=== PATIENT | male | born 1940 | race Caucasian/White ===

== ENCOUNTER → 2019-08-13 14:05 | Outpatient (BNVA) | payer MEDICARE, SELFPAY | PROVIDERS: Referring Provider Family Medicine; Visit Provider Urology | DX: N40.1 Benign prostatic hyperplasia with lower urinary tract symptoms (principal); R33.9 Retention of urine, unspecified; R97.20 Elevated prostate specific antigen [PSA]; N42.31 Prostatic intraepithelial neoplasia; I10 Essential (primary) hypertension | CPT/HCPCS: 51798; 99203 ==

== ENCOUNTER 2019-08-13 15:21 | Outpatient (CLI) | payer MEDICARE, SELFPAY | END 2019-08-13 15:41 | PROVIDERS: PCP Family Medicine; Visit Provider Urology | DX: R97.20 Elevated prostate specific antigen [PSA] (principal); N40.1 Benign prostatic hyperplasia with lower urinary tract symptoms; R33.9 Retention of urine, unspecified; N42.31 Prostatic intraepithelial neoplasia; I10 Essential (primary) hypertension | CPT/HCPCS: 51798; 99203; 84154 ==

== ENCOUNTER 2020-02-23 14:00 | Outpatient (CLI) | payer MEDICARE, SELFPAY | END 2020-02-23 14:20 | PROVIDERS: PCP Family Medicine; Visit Provider Nurse Practitioner Gerontology | DX: N40.1 Benign prostatic hyperplasia with lower urinary tract symptoms (principal); I10 Essential (primary) hypertension; C15.9 Malignant neoplasm of esophagus, unspecified | CPT/HCPCS: 81003; 99213 ==

== ENCOUNTER 2020-05-24 04:02 | Outpatient (CLI) | payer MEDICARE, SELFPAY ==
[2020-05-25 11:15] LABS: Free PSA/PSA Ratio 0.23 ratio
== END 2020-05-24 04:22 ==
PROVIDERS: PCP Family Medicine; Visit Provider Urology
DX: N42.31 Prostatic intraepithelial neoplasia (principal); R97.20 Elevated prostate specific antigen [PSA]
CPT/HCPCS: 36415; 84154

== ENCOUNTER → 2020-08-15 13:49 | Outpatient (BNVA) | payer MEDICARE, SELFPAY | PROVIDERS: PCP Family Medicine; Visit Provider Nurse Practitioner Gerontology | DX: N40.1 Benign prostatic hyperplasia with lower urinary tract symptoms (principal); R97.20 Elevated prostate specific antigen [PSA]; I10 Essential (primary) hypertension | CPT/HCPCS: 99213 ==

== ENCOUNTER → 2021-04-20 12:46 | Outpatient (BNVA) | payer MEDICARE, SELFPAY | PROVIDERS: PCP Family Medicine; Referring Provider Family Medicine; Visit Provider Urology | DX: N40.1 Benign prostatic hyperplasia with lower urinary tract symptoms (principal); N42.31 Prostatic intraepithelial neoplasia; R97.20 Elevated prostate specific antigen [PSA] | CPT/HCPCS: 81003; 99214; 99215 ==

== ENCOUNTER 2021-04-20 14:40 | Outpatient (REF) | payer MEDICARE, SELFPAY ==
[2021-04-20 21:57] LABS: PSA, Diagnostic 31.1 ng/mL (0.0-6.5)
== END 2021-04-20 14:41 | disposition home or self-care (01) ==
LOC: NCHCN 14:40
PROVIDERS: PCP Family Medicine; Visit Provider Urology
DX: R97.20 Elevated prostate specific antigen [PSA] (principal)
CPT/HCPCS: 84153

== ENCOUNTER → 2021-05-22 07:58 | Outpatient (BNVA) | payer MEDICARE, SELFPAY | PROVIDERS: PCP Family Medicine; Referring Provider Family Medicine; Visit Provider Nurse Practitioner Gerontology | DX: R69 Illness, unspecified (principal) ==

== ENCOUNTER 2021-05-22 08:56 | Outpatient (REF) | payer MEDICARE, SELFPAY ==
[2021-05-22 22:08] LABS: PSA, Diagnostic 12.6 ng/mL (0.0-6.5)
== END 2021-05-22 08:57 | disposition home or self-care (01) ==
LOC: LBN 08:56
PROVIDERS: PCP Family Medicine; Visit Provider Urology
DX: R97.20 Elevated prostate specific antigen [PSA] (principal); N42.31 Prostatic intraepithelial neoplasia
CPT/HCPCS: 84153

== ENCOUNTER 2021-08-23 02:36 | Outpatient (CLI) | payer MEDICARE, SELFPAY ==
[2021-08-23 18:45] LABS: PSA, Diagnostic 10.3 ng/mL (0.0-6.5)
== END 2021-08-23 02:37 | disposition home or self-care (01) ==
LOC: LBO 02:36
PROVIDERS: Nurse Practitioner Gerontology; PCP Family Medicine; Visit Provider Urology
DX: R97.20 Elevated prostate specific antigen [PSA] (principal)
CPT/HCPCS: 36415; 84153

== ENCOUNTER → 2021-08-29 13:44 | Outpatient (BNVA) | payer MEDICARE, SELFPAY | PROVIDERS: PCP Family Medicine; Referring Provider Family Medicine; Visit Provider Nurse Practitioner Gerontology | DX: N40.1 Benign prostatic hyperplasia with lower urinary tract symptoms (principal); N42.31 Prostatic intraepithelial neoplasia; R97.20 Elevated prostate specific antigen [PSA] | CPT/HCPCS: 99213 ==

== ENCOUNTER 2022-02-21 02:35 | Outpatient (CLI) | payer MEDICARE, SELFPAY ==
[2022-02-21 23:05] LABS: PSA, Diagnostic 11.4 ng/mL (<=6.5)
== END 2022-02-21 02:36 | disposition home or self-care (01) ==
LOC: LBO 02:35
PROVIDERS: PCP Family Medicine; Visit Provider Nurse Practitioner Gerontology
DX: N40.1 Benign prostatic hyperplasia with lower urinary tract symptoms (principal); N42.31 Prostatic intraepithelial neoplasia; R97.20 Elevated prostate specific antigen [PSA]
CPT/HCPCS: 36415; 84153

== ENCOUNTER → 2022-02-27 13:55 | Outpatient (BNVA) | payer MEDICARE, SELFPAY | PROVIDERS: PCP Family Medicine; Visit Provider Nurse Practitioner Gerontology | DX: N40.1 Benign prostatic hyperplasia with lower urinary tract symptoms (principal); R33.8 Other retention of urine; N42.31 Prostatic intraepithelial neoplasia; R97.20 Elevated prostate specific antigen [PSA] | CPT/HCPCS: 51798; 99214 ==

== ENCOUNTER 2022-08-19 03:10 | Outpatient (CLI) | payer MEDICARE, SELFPAY ==
[2022-08-19 18:03] LABS: PSA, Diagnostic 11.7 ng/mL (<=6.5)
== END 2022-08-19 03:11 | disposition home or self-care (01) ==
LOC: LBO 03:10
PROVIDERS: PCP Family Medicine; Visit Provider Nurse Practitioner Gerontology
DX: N42.31 Prostatic intraepithelial neoplasia (principal); N40.1 Benign prostatic hyperplasia with lower urinary tract symptoms; R97.20 Elevated prostate specific antigen [PSA]
CPT/HCPCS: 36415; 84153

== ENCOUNTER → 2022-09-02 13:50 | Outpatient (BNVA) | payer MEDICARE, SELFPAY | PROVIDERS: PCP Family Medicine; Referring Provider Family Medicine; Visit Provider Nurse Practitioner Gerontology | DX: R39.89 Other symptoms and signs involving the genitourinary system (principal); N40.1 Benign prostatic hyperplasia with lower urinary tract symptoms; R97.20 Elevated prostate specific antigen [PSA]; N42.31 Prostatic intraepithelial neoplasia | CPT/HCPCS: 51798; 99214 ==

== ENCOUNTER → 2022-12-18 14:34 | Outpatient (BNVA) | payer MEDICARE, SELFPAY | PROVIDERS: PCP Family Medicine; Referring Provider Family Medicine; Visit Provider Nurse Practitioner Gerontology | DX: N20.0 Calculus of kidney (principal) | CPT/HCPCS: 99442 ==

== ENCOUNTER 2022-12-19 10:10 | Day surgery (SDC) | payer MEDICARE, SELFPAY ==
[2022-12-19] VITALS (7 sets, daily range): BP systolic 142–188; BP diastolic 69–96; PULSE 48–65; RESP 12–98; TEMP 36–36.7; O2SAT 94–100; BMI 31.6
[2022-12-19] MEDS: Lactated Ringers 1,000 ML 80 ML IV (11:12)
--- NOTE | 2022-12-19 12:09 | W.ANESPRE ---
General Info Date of Service Date Performed: 12/19/22 Height: 5 ft 11.5 in Weight: 104.3 kg Body Mass Index (BMI): 31.6 Surgical Procedure: Operation Date: 12/19/22 12:55 Proposed Procedure Side Surgeon p Cystoscopy/Retrograde/RT vs LT Stone Manipulation Bilateral Lamonte Heredia MD Meds Allergies and Home Medications Allergies Allergy/AdvReac Type Severity Reaction Status Date / Time amlodipine Allergy polyuria Verified 12/19/22 10:48 bisoprolol Allergy bradycardia Verified 12/19/22 10:48 diltiazem [From Diltia XT] Allergy Edema Verified 12/19/22 10:48 labetalol Allergy trouble Verified 12/19/22 10:48 breathing lisinopril Allergy leg pain Verified 12/19/22 10:48 losartan Allergy leg pain Verified 12/19/22 10:48 metoprolol Allergy bradycardia Verified 12/19/22 10:48 Home Medication Medication Instructions Recorded acetaminophen 500 mg/5 mL oral 250 mg PO DAILY PRN 12/18/22 liquid doxazosin 2 mg tablet 1 mg PO HS 12/18/22 levothyroxine 88 mcg tablet 88 mcg PO DAILY 12/18/22 ondansetron HCl 4 mg tablet 4 mg PO DIRECTED PRN 12/18/22 Current Visit Medications: Current Medications Generic Name Dose Route Start Last Admin Trade Name Freq PRN Reason Stop Dose Admin Ringer's Solution 1,000 mls @ 80 mls/hr 12/19/22 06:00 12/19/22 11:12 IV 12/19/22 23:59 80 mls/hr INFUSION MARICARMEN Administration Cefazolin Sodium/Dextrose 2 gm in 50 mls @ 100 mls/hr 12/19/22 06:00 Ancef Duplex IVPB 12/19/22 23:59 PREOP MARICARMEN IV Miscellaneous Supplies 1 each 12/19/22 06:00 Iv Access IV 12/19/22 23:59 DIRECTED MARICARMEN Sodium Chloride 0 ml 12/19/22 06:00 Normal Saline Flush 10 Ml Syr IV 12/19/22 23:59 PRN PRN Sodium Chloride 0 ml 12/19/22 06:00 Normal Saline 10 Ml Vial IJ 12/19/22 23:59 DIRECTED PRN Sterile Water 0 ml 12/19/22 06:00 Water,Injection,Sterile 10 Ml Vial IJ 12/19/22 23:59 DIRECTED PRN PFSH Active Problems Active Problems: Problem Status Onset Code Elevated PSA R97.20 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 BPH loc w urin obs/LUTS N40.1 Nail dystrophy L60.3 Bilateral edema of lower extremity R60.0 Medical History Medical History Arthritis Asthma BPH (benign prostatic hyperplasia) Enlarged prostate Esophageal cancer Radiation and Chemo and 2/3 of esphagous removed in [place] (03/22/20)-In remission Glaucoma Hemorrhoids Hypertension Hypothyroidism Incomplete emptying of bladder Lung cancer Radiation therapy 08/2022-current status: no treatment as of this pre op 12/18/22 Nocturia Normal colonoscopy Obesity Thyroid disease Surgical History Surgical History (Updated 12/19/22 @ 10:47 by Nancy Coelho) H/O inguinal hernia repair H/O umbilical hernia repair History of total bilateral knee replacement History of total right hip replacement Tobacco Smoking/Tobacco Use Status: Former Tobacco Use Alcohol Alcohol Intake: never Substance Use Substance use: Never Substance use type: does not use Vital Signs and Lab Results Vital Signs Most Recent Vital Signs in EMR: Most Recent Vital Signs Temp Pulse Resp BP Pulse Ox 36 C L 54 L 16 188/96 H 98 12/19/22 10:30 12/19/22 10:30 12/19/22 10:30 12/19/22 10:30 12/19/22 10:30 Lab Results Blood Type / Crossmatch: No Data to Display Complete Blood Count: No Data to Display Complete Metabolic Panel: No Data to Display Liver Function Panel: No Data to Display Coagulation Panel: No Data to Display Cardiac Panel: No Data to Display Arterial Blood Gas: No Data to Display Venous Blood Gas: No Data to Display Pancreas Panel: No Data to Display Thyroid Panel: No Data to Display Infectious Disease: No Data to Display Blood Cultures: No Data to Display Toxicology Panel: No Data to Display Imaging and Studies Imaging and Studies Study information below may be from another EMR and interpreted by another provider. Please see original notes in EMR for more complete details. Stress Test Summary: 06/22/2020: [facility]: Normal, EF 56%. Anesthesia Assessment and Plan Anesthesia History Personal History: No History of Anesthesia Complications Family History: No Family History of Anesthesia Complications Implantable Cardiac Device Does patient have a Pacemaker or an ICD?: No
--- NOTE | 2022-12-19 13:16 | W.PM.HP.N ---
Date of service: 12/19/22 Time of Service: 14:09 Assessment and Plan Assessment and plan (1) Bilateral ureteral calculi: Status: Acute Assessment and plan: In reviewing his imaging studies, I am not certain that one or both of his stones are not already in the bladder. We will plan to go ahead with cystoscopy, bilateral retrograde pyelogram, possible ureteroscopy and holmium laser lithotripsy based on the location of the stones History of Present Illness History of Present Illness Chief Complaint: Bilateral ureteral stones Narrative: This is an 82-year-old gentleman who is followed in our office for an elevated PSA and lower urinary tract symptoms. He has chronic back pain that he noticed that the left-sided portion of his back pain worsened recently. He was seen in the emergency department at [facility] and was found to have bilateral ureteral stones. Since he has remained symptomatic, he is interested in moving forward with surgical treatment of his stones. He has no known history of gout or hyperparathyroid disease. He is not having any gross hematuria or dysuria. He has no fevers or chills. Review of Systems Narrative: No fevers or chills No vision change or dysphasia Hypothyroidism. No diabetes No shortness of breath, cough or hemoptysis No chest pain or palpitations GERD, esophageal cancer. No nausea, vomiting, hepatitis, ulcers, jaundice No seizures, strokes or peripheral neuropathy No bleeding disorders or anemia Chronic back pain. No gout PFSH All Active Problems (Updated 12/19/22 @ 13:17 by Lamonte Heredia MD) Bilateral ureteral calculi (Acute) Elevated PSA (Acute) High grade prostatic intraepithelial neoplasia (Acute) BPH loc w urin obs/LUTS (Acute) Nail dystrophy (Acute) Bilateral edema of lower extremity (Acute) Medical History (Updated 12/19/22 @ 13:17 by Lamonte Heredia MD) Arthritis Asthma BPH (benign prostatic hyperplasia) Enlarged prostate Esophageal cancer Radiation and Chemo and 2/3 of esphagous removed in [place] (03/22/20)-In remission Glaucoma Hemorrhoids Hypertension Hypothyroidism Incomplete emptying of bladder Lung cancer Radiation therapy 08/2022-current status: no treatment as of this pre op 12/18/22 Nocturia Normal colonoscopy Obesity Thyroid disease Surgical History (Updated 12/19/22 @ 10:47 by Nancy Coelho) H/O inguinal hernia repair H/O umbilical hernia repair History of total bilateral knee replacement History of total right hip replacement Social History Smoking/Tobacco Use Status: Former Tobacco Use Quit Date: 11/03/84 Smoking risk assessment performed?: Yes Alcohol Intake: never Drug use: Never Substance use type: does not use Current gender identity: male Do you feel safe at home: Yes Do you feel safe in your relationship?: Yes Meds Allergies and Home Medications Allergies Allergy/AdvReac Type Severity Reaction Status Date / Time amlodipine Allergy polyuria Verified 12/19/22 10:48 bisoprolol Allergy bradycardia Verified 12/19/22 10:48 diltiazem [From Diltia XT] Allergy Edema Verified 12/19/22 10:48 labetalol Allergy trouble Verified 12/19/22 10:48 breathing lisinopril Allergy leg pain Verified 12/19/22 10:48 losartan Allergy leg pain Verified 12/19/22 10:48 metoprolol Allergy bradycardia Verified 12/19/22 10:48 Home Medications Medication Instructions Recorded Confirmed Type acetaminophen 500 mg/5 mL oral 250 mg PO DAILY PRN 12/18/22 12/19/22 History liquid doxazosin 2 mg tablet 1 mg PO HS 12/18/22 12/19/22 History levothyroxine 88 mcg tablet 88 mcg PO DAILY 12/18/22 12/19/22 History ondansetron HCl 4 mg tablet 4 mg PO DIRECTED PRN 12/18/22 12/18/22 History Exam Const General: cooperative and comfortable Neck Neck: supple Resp Effort & Inspection: normal respiratory effort Auscultation: clear to auscultation bilaterally Cardio Rate: regular rate Rhythm: regular rhythm GI Palpation: no masses Neuro General: patient alert, patient awake and patient oriented x3 Results Last Vital Signs Temp 36 C L 12/19/22 10:30 Pulse 54 L 12/19/22 10:30 Resp 16 12/19/22 10:30 BP 188/96 H 12/19/22 10:30 Pulse Ox 98 12/19/22 10:30 Time Spent Time spent with Patient: <40 minutes Time was spent: other
--- NOTE | 2022-12-19 13:52 | W.ANESPRE ---
General Info Date of Service Date Performed: 12/19/22 Height: 5 ft 11.5 in Weight: 104.3 kg Body Mass Index (BMI): 31.6 Surgical Procedure: Operation Date: 12/19/22 12:55 Proposed Procedure Side Surgeon p Cystoscopy/Retrograde/RT vs LT Stone Manipulation Bilateral Lamonte Heredia MD Meds Allergies and Home Medications Allergies Allergy/AdvReac Type Severity Reaction Status Date / Time amlodipine Allergy polyuria Verified 12/19/22 10:48 bisoprolol Allergy bradycardia Verified 12/19/22 10:48 diltiazem [From Diltia XT] Allergy Edema Verified 12/19/22 10:48 labetalol Allergy trouble Verified 12/19/22 10:48 breathing lisinopril Allergy leg pain Verified 12/19/22 10:48 losartan Allergy leg pain Verified 12/19/22 10:48 metoprolol Allergy bradycardia Verified 12/19/22 10:48 Home Medication Medication Instructions Recorded acetaminophen 500 mg/5 mL oral 250 mg PO DAILY PRN 12/18/22 liquid doxazosin 2 mg tablet 1 mg PO HS 12/18/22 levothyroxine 88 mcg tablet 88 mcg PO DAILY 12/18/22 ondansetron HCl 4 mg tablet 4 mg PO DIRECTED PRN 12/18/22 Current Visit Medications: Current Medications Generic Name Dose Route Start Last Admin Trade Name Freq PRN Reason Stop Dose Admin Ringer's Solution 1,000 mls @ 80 mls/hr 12/19/22 06:00 12/19/22 11:12 IV 12/19/22 23:59 80 mls/hr INFUSION MARICARMEN Administration Cefazolin Sodium/Dextrose 2 gm in 50 mls @ 100 mls/hr 12/19/22 06:00 Ancef Duplex IVPB 12/19/22 23:59 PREOP MARICARMEN IV Miscellaneous Supplies 1 each 12/19/22 06:00 Iv Access IV 12/19/22 23:59 DIRECTED MARICARMEN Sodium Chloride 0 ml 12/19/22 06:00 Normal Saline Flush 10 Ml Syr IV 12/19/22 23:59 PRN PRN Sodium Chloride 0 ml 12/19/22 06:00 Normal Saline 10 Ml Vial IJ 12/19/22 23:59 DIRECTED PRN Sterile Water 0 ml 12/19/22 06:00 Water,Injection,Sterile 10 Ml Vial IJ 12/19/22 23:59 DIRECTED PRN PFSH Active Problems Active Problems: Problem Status Onset Code Bilateral ureteral calculi N20.1 Elevated PSA R97.20 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 BPH loc w urin obs/LUTS N40.1 Nail dystrophy L60.3 Bilateral edema of lower extremity R60.0 Medical History Medical History (Updated 12/19/22 @ 13:17 by Lamonte Heredia MD) Arthritis Asthma BPH (benign prostatic hyperplasia) Enlarged prostate Esophageal cancer Radiation and Chemo and 2/3 of esphagous removed in [place] (03/22/20)-In remission Glaucoma Hemorrhoids Hypertension Hypothyroidism Incomplete emptying of bladder Lung cancer Radiation therapy 08/2022-current status: no treatment as of this pre op 12/18/22 Nocturia Normal colonoscopy Obesity Thyroid disease Surgical History Surgical History (Updated 12/19/22 @ 10:47 by Nancy Coelho) H/O inguinal hernia repair H/O umbilical hernia repair History of total bilateral knee replacement History of total right hip replacement Tobacco Smoking/Tobacco Use Status: Former Tobacco Use Alcohol Alcohol Intake: never Substance Use Substance use: Never Substance use type: does not use Vital Signs and Lab Results Vital Signs Most Recent Vital Signs in EMR: Most Recent Vital Signs Temp Pulse Resp BP Pulse Ox 36 C L 54 L 16 188/96 H 98 12/19/22 10:30 12/19/22 10:30 12/19/22 10:30 12/19/22 10:30 12/19/22 10:30 Lab Results Blood Type / Crossmatch: No Data to Display Complete Blood Count: No Data to Display Complete Metabolic Panel: No Data to Display Liver Function Panel: No Data to Display Coagulation Panel: No Data to Display Cardiac Panel: No Data to Display Arterial Blood Gas: No Data to Display Venous Blood Gas: No Data to Display Pancreas Panel: No Data to Display Thyroid Panel: No Data to Display Infectious Disease: No Data to Display Blood Cultures: No Data to Display Toxicology Panel: No Data to Display Imaging and Studies Imaging and Studies Study information below may be from another EMR and interpreted by another provider. Please see original notes in EMR for more complete details. Stress Test Summary: 06/22/2020: [facility]: Normal, EF 56%. Anesthesia Assessment and Plan Anesthesia History Personal History: Other (urinary retention after spinal requiring urologist) Family History: No Family History of Anesthesia Complications Exercise Tolerance Exercise Tolerance: Metabolic Equivalents>4 Cardiac & Pulmonary Exam Cardiac Exam: Normal S1/S2 Heart Sounds Pulmonary Exam: Clear Bilateral Breath Sounds Implantable Cardiac Device Does patient have a Pacemaker or an ICD?: No Airway Exam Known Difficult Airway: No Mallampati Class: 3 Mouth Opening: Normal (> 3cm) Thyromental Distance: Greater than 3 cm Neck Range of Motion: Full ROM Neck Circumference: Normal Teeth Condition: Removable Dentures/Plates Upper and Removable Dentures/Plates Lower ASA Classification ASA Score: ASA 3 Emergency Case?: No NPO Status NPO Status: NPO Clears >2 hours, Solids >8 hours Anesthesia Plan Resuscitation Status: Full Code Anesthesia Technique: General Anesthesia Airway Planned: Endotracheal Tube (reflux when flat result of surgery. will need to protect airway) Monitors Used: Standard Monitors Preoperative Comments:: Due to surgical esophageal cancer will need to rapid intubate. Pt understands
--- NOTE | 2022-12-19 14:15 | DI.RAD_ITS ---
Exam(s) XR RETROGRADE IN OR EXAM: XR RETROGRADE IN OR CLINICAL HISTORY: (1) Bilateral ureteral calculi:. TECHNIQUE: 2D digital imaging was performed. COMPARISON: No exams were available for comparison FINDINGS: Fluoroscopy provided during urologic procedure. Please refer for to procedure report for details. Radiation exposure index/cumulative dose: kasia Grant= 2.09mGy IMPRESSION: DATA REPOSITORY: RADIATION DOSE DELIVERED:
--- NOTE | 2022-12-19 15:36 | W.PM.DSUDISC ---
Date of service: 12/19/22 Time of Service: 15:39 Discharge Plan Disposition Condition: Stable Discharge Details Reason For Visit: cystoscopy Attending Provider: Lamonte Heredia Primary Care Provider: Chris Farah Home Meds and New Rx's Prescriptions: No Action doxazosin 2 mg tablet 1 mg PO HS ondansetron HCl 4 mg tablet 4 mg PO DIRECTED PRN Patient Comments: TAKE 1 TABLET BY MOUTH EVERY 8 HOURS NEEDED FOR NAUSEA levothyroxine 88 mcg tablet 88 mcg PO DAILY Patient Comments: TAKE ONE TABLET BY MOUTH EVERY DAY acetaminophen 500 mg/5 mL Liquid 250 mg PO DAILY PRN Discharge Instructions Additional Instructions: no need to strain urine follow up 6 to 8 weeks for renal US to be done in office morrison to gravity Activity:: Activity as Tolerated Shower/Bathe:: 24 hours Diet:: As Tolerated DS: Diagnosis Discharge Diagnosis (1) Bilateral ureteral calculi: Status: Acute
--- NOTE | 2022-12-19 15:40 | W.PM.OP ---
Date of service: 12/19/22 Time of Service: 15:40 Operative Note Operative Note DATE OF PROCEDURE: 12/19/22 PRE-OP DIAGNOSIS: Bilateral ureteral stones POST-OP DIAGNOSIS: other (Bladder stones) PROCEDURE: Cystoscopy with evacuation of bladder stones SURGEON: Lamonte Heredia ANESTHESIA TYPE: Local By Surgeon and General LMA/ETT Refer to Anesthesia Record ESTIMATED BLOOD LOSS: 25 PATHOLOGY: other (stone for chemical analysis) COMPLICATIONS: None Patient was transported to: PACU Patient's condition: stable Implants: none Indications: This is an 82-year-old gentleman who has a history of an elevated PSA. He has some chronic back pain and recently presented to an outlying ER with left flank pain. He had a CT scan done which showed bilateral distal ureteral stones. He presents now for stone manipulation. Findings: Large median lobe of the prostate making visualization of the trigone very difficult Procedure Description: The patient was given preoperative IV antibiotics and brought to the operating room on 12/19/2022. After successful induction of general anesthesia, he was placed in the dorsal lithotomy position. His genitalia was prepped and draped. 2% Xylocaine jelly was instilled into the urethra to act as a local anesthetic. A 22 Israeli rigid cystoscope was passed through the urethra into the bladder. The urethra and bladder were inspected with a 30 degree lens. The pendulous, bulbar and membranous urethra was all appeared normal with no strictures. The prostatic urethra showed significant lateral lobe enlargement and a very large median lobe jetting back into the bladder. The bladder was heavily trabeculated with multiple diverticuli and cellules. I was able to push the median lobe of the bladder away from the trigone and I was able to visualize 2 stones at the base of the bladder. The stones were irrigated free and sent to the lab for chemical analysis. Based on his CT scans, I believe these 2 stones were the ones identified radiographically. Because of the prostatic trauma from the scope, I expect postprocedural gross hematuria. I elected to place a Sandhu catheter. I passed a 16 Israeli Sandhu through the urethra into the bladder. The catheter balloon was inflated with 10 cc of sterile water and the catheter was hooked to gravity drainage. The patient tolerated the procedure well with no complications.
--- NOTE | 2022-12-19 17:18 | W.ANESPOSTOP ---
Postoperative Evaluation Date, Time and Location Date Performed: 12/19/22 Time Performed: 17:14 Patient Location: Day Surgery Unit Vital Signs Most Recent Imported Vital Signs: Most Recent Vital Signs Temp Pulse Resp BP Pulse Ox 36.7 C 48 L 98 H 179/84 H 100 12/19/22 16:27 12/19/22 16:27 12/19/22 16:27 12/19/22 16:27 12/19/22 16:27 Pain Score Most Recent Pain Score: Most Recent Pain Score Pain Level 6 12/19/22 16:27 Assessment Mental Status: Awake (Alert & Oriented to Patient Baseline) Airway and Respiratory Function: Patent airway with normal (patient baseline) respiratory exam Cardiovascular Function: Hemodynamically Stable Hydration Status: Adequately Hydrated Nausea & Vomiting: No Nausea or Vomiting Pain: Pain is tolerable per patient Peripheral Nerve Block: Patient did not receive a nerve block
== END 2022-12-19 18:03 | disposition home or self-care (01) ==
PROVIDERS: PCP Family Medicine; Visit Provider Urology
PROC: (CPT 74450; principal; 2022-12-19 12:45)
DX: N21.0 Calculus in bladder (principal); N40.1 Benign prostatic hyperplasia with lower urinary tract symptoms; R33.9 Retention of urine, unspecified
CPT/HCPCS: 52310; 74420; 82365; J1100; J1885; J2704

== ENCOUNTER 2022-12-21 11:25 | Emergency (ER) | payer MEDICARE, SELFPAY ==
[2022-12-21 11:29] VITALS: PULSE 67; RESP 18; TEMP 36.2; O2SAT 99
--- NOTE | 2022-12-21 11:31 | ED.GENADUL_ITS ---
Discharge Plan Disposition Patient Disposition: Home Discharge Details Clinical Impression: Leg swelling, Sandhu catheter in place Primary Care Provider: Chris Farah ED Provider: Surekha Camacho Home Meds and New Rx's Prescriptions: Continued doxazosin 2 mg tablet 1 mg PO HS levothyroxine 88 mcg tablet 88 mcg PO DAILY Patient Comments: TAKE ONE TABLET BY MOUTH EVERY DAY Discharge Instructions Instructions: Sandhu Catheter Placement and Care (ED), Leg Edema (ED) Additional Instructions: Return to the ER for any worsening leg swelling, redness, shortness of breath, chest pain fast heart rate or any concerns. Please keep your follow-up appointment with urology as previously discussed. At this time it appears that the Sandhu catheter is draining well and is well cared for. No clinical evidence of blood clot in your leg however please return for any worsening. Follow up with primary care provider in 3-5 days. Return to ED sooner if any worsening or concerns. Increase oral fluids to keep the catheter drainage clear. Referrals: Lamonte Heredia MD [ [facility] STAFF PHYSICIAN] - 1 week Chris Farah [Primary Care Provider] - Discharge Data Discharge Date/Time-TO BE ENTERED AT DEPARTURE: 12/21/22 12:13 Medical Decision Making <Surekha Camacho NP - Last Filed: 12/21/22 14:00> Patient here for catheter check and some swelling to his right upper thigh which he noticed this morning which she reports has been improving. Overall after the surgery he feels much better over the last couple of days with decreased discomfort. He reports that initially after the surgery there was some blood clots and red urine in the Sandhu bag which seems to have been resolved. He denies any chest pain shortness of breath no calf pain no erythema noted to his lower extremity. Does have a history of bilateral lower extremity edema. At this time the Sandhu catheter is draining well no abdominal pressure or bladder pressure to indicate an occluded catheter. Patient will be followed up with urologist in the coming weeks. Encouraged him to keep those appointments. Discussed red flags and strict return instructions to return to the ER for worsening swelling in the leg, redness, shortness of breath chest pain fever chills or any other concerns. Him and his significant other verbalized understanding. Reinforced home care of the catheter. Blood pressure improved prior to discharge 156/82. This text was generated using Nuance dictation system, please disregard any oddities of phrase or misspellings. <Pritesh Graham MD - Last Filed: 12/26/22 16:55> Date: 12/21/22 Time: 12:07 Note: Patient seen, examined, and discussed with KALEY Camacho. I agree with treatment plan as discussed/documented. A medical screening exam was performed and patient stable. Plan for urology follow-up early next week and follow-up with PCP. Patient was hypertensive on arrival. Blood pressure improved. Patient was made aware of elevated blood pressure need to discuss with his primary care physician. HPI <Surekha Camacho NP - Last Filed: 12/21/22 14:00> General Mode of arrival: ambulatory . Date/Time Provider Initiated Documentation: 12/21/22 11:26 . Limitations to Documentation: no limitations . Information obtained by: patient, RN notes reviewed and old records reviewed . HPI Narrative: 82-year-old male past medical history of high-grade prostatic intraepithelial neoplasia, elevated PSA, BPH with urine obstruction bilateral edema of lower extremities, arthritis asthma esophageal cancer, hypertension hypothyroidism and incomplete emptying of bladder presents to the ER with a chief complaint of noted localized swelling to right upper leg which he noticed this am that seems to be resolving. Denies chest pain, SOB, testicle swelling active bleeding or any other associated symptoms. Patient recently had bilateral ureteral stones evacuation via cystoscopy on December 19, 2022 under general anesthesia, 48 hours ago and a 16 Thai Sandhu catheter placed. Related Data Home Medications Medication Instructions Recorded Confirmed doxazosin 2 mg tablet 1 mg PO HS 12/18/22 12/21/22 levothyroxine 88 mcg tablet 88 mcg PO DAILY 12/18/22 12/21/22 Allergies Allergy/AdvReac Type Severity Reaction Status Date / Time amlodipine Allergy polyuria Verified 12/21/22 11:33 bisoprolol Allergy bradycardia Verified 12/21/22 11:33 diltiazem [From Diltia XT] Allergy Edema Verified 12/21/22 11:33 labetalol Allergy trouble Verified 12/21/22 11:33 breathing lisinopril Allergy leg pain Verified 12/21/22 11:33 losartan Allergy leg pain Verified 12/21/22 11:33 metoprolol Allergy bradycardia Verified 12/21/22 11:33 Review of Systems <Surekha Camacho NP - Last Filed: 12/21/22 14:00> Cardiovascular Cardiovascular: Denies chest pain, Reports leg edema (Right upper leg, somewhat resolving) and Denies dyspnea Respiratory Respiratory: Denies dyspnea Genitourinary Genitourinary: Reports as per HPI, Denies testicular mass, Denies testicular pain and Reports other (In place Sandhu catheter draining with light yellow urine, some sediment) PFSH <Surekha Camacho NP - Last Filed: 12/21/22 14:00> All Active Problems (Updated 12/21/22 @ 12:03 by Surekha Camacho NP) Leg swelling (Acute) Sandhu catheter in place (Acute) Elevated PSA (Acute) High grade prostatic intraepithelial neoplasia (Acute) BPH loc w urin obs/LUTS (Acute) Nail dystrophy (Acute) Bilateral edema of lower extremity (Acute) Medical History Arthritis Asthma BPH (benign prostatic hyperplasia) Enlarged prostate Esophageal cancer Radiation and Chemo and 2/3 of esphagous removed in [place] (03/22/20)-In remission Glaucoma Hemorrhoids Hypertension Hypothyroidism Incomplete emptying of bladder Lung cancer Radiation therapy 08/2022-current status: no treatment as of this pre op 12/18/22 Nocturia Normal colonoscopy Obesity Thyroid disease Surgical History H/O inguinal hernia repair H/O umbilical hernia repair History of total bilateral knee replacement History of total right hip replacement Social History Smoking/Tobacco Use Status: Former Tobacco Use Quit Date: 11/03/84 Smoking risk assessment performed?: Yes Alcohol Intake: never Drug use: Never Substance use type: does not use Current gender identity: male Do you feel safe at home: Yes Do you feel safe in your relationship?: Yes Exam <Surekha Camacho NP - Last Filed: 12/21/22 14:00> Male General Exam: Yes normal external exam Penis: other (Uncircumcised, foreskin easily retractable, there is some dried blood noted) Meatus: other (Small amount of dried blood noted, no active bleeding.) Scrotum: scrotum normal, no ecchymosis, not edematous and no scrotal swelling Testes: testicular lie normal Other: Sandhu catheter in place and light yellow urine with some sediment no obvious significant blood clots.
[2022-12-21 11:33] VITALS: BP 193/108
--- OUTSIDE RECORDS SUMMARY | 2022-12-21 11:55 | XMS_ITS | CCD ---
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 BMI (Body Mass Index) 30.79 kg/m^2 12/14/2022 17: 56 Initial VS Weight Measured 227 lbs 12/14/2022 17:56 Ini tial VS Height 72 in 12/14/2022 17:56 Initial VS BSA (Body Surface Area) 2.29 m^2 12/14/2022 1 7:56 Initial VS BP Systolic 153 mmHg 12/14/2022 17:56 Initial VS BP Diastolic 102 mmHg 12/14/2022 17:56 Initia l VS Respiratory Rate 16 bpm 12/14/2022 17:56 In itial VS Heart Rate 67 bpm 12/14/2022 17:56 Initial VS O2 % BldC Oximetry 99 % 12/14/2022 17:56 Initial VS Body Temperature 36.5 degrees 12/14/2022 17:56 In itial VS BP Systolic 162 mmHg 12/14/2022 20:24 Most Re cent VS BP Diastolic 82 mmHg 12/14/2022 20:24 Most R ecent VS Heart Rate 55 bpm 12/14/2022 20:24 Most Rec ent VS O2 % BldC Oximetry 97 % 12/14/2022 20:24 Most Recent VS Allergies Allergy Code Allergy Type Reaction Status LISINOPRIL 35429 Drug allergy LEG ACHES Active AMLODIPINE 82101 Drug allergy POLYURIA Active CONTRAST MEDIA, IODINE RELATED 0 Drug allergy Hiv es Active HYDROCHLOROTHIAZIDE 5487 Drug allergy DIZZINESS Act tito LOSARTAN 26981 Drug allergy LEG PAIN Active IODINE-CONTAINING 0 Drug allergy Hives Activ e METOPROLOL SUCCINATE 247139 Drug allergy BRADYCARDIA A ctive LABETALOL 6185 Drug allergy SOB Active RAMIPRIL 09935 Drug allergy DIZZINESS Active BISOPROLOL 65502 Drug allergy BRADYCARDIA Active Procedures Unknown or Not Available. History of Immunizations Unknown or Not Available. Problems Problem Code Start Date Resolved Date Status Cancer of lung 426019267 Active Cancer of esophagus 025189764 Activ e Hypothyroidism 47980483 Active HTN 67862562 Active NSTEMI 550251100 Active Results COMPREHENSIVE METABOLIC PANE L (CMP) - Collect Date/Time: 12/14/2022 19:18 Test Name Code Test Result Test Units Test Ref Rang e GLUCOSE 2345-7 92 mg/dL L=70 H=116 BUN 3094-0 22 mg/dL L=6 H=25 CREATININE 2160-0 1.36 mg/dL L=0.67 H=1.17 SODIUM SERUM 2951-2 140 mmol/L L=136 H=145 POTASSIUM SERUM 2823-3 4.0 mmol/L L=3.4 H=5 .2 CHLORIDE SERUM 2075-0 104 mmol/L L=96 H=110 CARBON DIOXIDE (CO2) 2028-9 30 mmol/L L=22 H=34 ANION GAP 92417-5 5.6 mmol/L CALCIUM SERUM 51404-5 9.2 mg/dL L=8.2 H=10. 2 BILIRUBIN TOTAL 1975-2 0.5 mg/dL L=0.0 H=1 .3 ALK. PHOS. 6768-6 95 U/L L=46 H=116 SGOT (AST) 1920-8 22 U/L L=15 H=37 SGPT (ALT) 1742-6 14 U/L L=12 H=78 TOTAL PROTEIN 2885-2 7.3 gm/dL L=6.0 H=8.0 ALBUMIN 1751-7 3.8 gm/dL L=3.4 H=5.0 AGE 82 years eGFR (non-Afr.Amer.) 16833-2 50 mL/min eGFR (Afr-Bahraini) 68350-2 61 mL/min CBC W/ DIFFERENTIAL* - Colle ct Date/Time: 12/14/2022 19:18 Test Name Code Test Result Test Units Test Ref Rang e WBC 6690-2 5.57 th/cmm L=5.00 H=10.00 NEUT % 77.6 % L=40.0 H=80.0 LYMPH % 12.0 % L=10.0 H=50.0 MONO % 27442-0 7.7 % L=2.0 H=12.0 EOS % 2.0 % L=0.0 H=8.0 BASO % 0.5 % L=0.0 H=3.0 IG % 2514-8 0.2 % L=0.0 H=1.1 NRBC % 36609-3 0.0 % L=0.0 H=0.0 NEUT abs count 751-8 4.3 th/cmm L=1.6 H=8. 4 LYMPH abs count 731-0 0.7 th/cmm L=1.5 H=4 .0 MONO abs count 742-7 0.4 th/cmm L=0.2 H=1. 0 EOS abs count 711-2 0.1 th/cmm L=0.0 H=0.5 BASO abs count 704-7 0.0 th/cmm L=0.0 H=0. 2 IG abs count 01042-7 0.0 th/cmm L=0.0 H=0.1 NRBC abs count 54611-8 0.0 mil/cmm L=0.0 H=0. 0 RBC 789-8 4.73 mil/cmm L=4.30 H=6.20 HEMOGLOBIN 718-7 12.2 gm/dL L=13.0 H=17.0 HEMATOCRIT 4544-3 39 % L=45 H=52 MCV 787-2 81 fL L=82 H=92 MCH 785-6 25.8 pg L=27.0 H=31.0 MCHC 786-4 31.7 % L=32.0 H=36.0 RDW-SD 788-0 44.5 fL L=39.0 H=49.0 PLATELET COUNT 777-3 136 th/cmm L=150 H=45 0 URINALYSIS WITH REFLEX CULT IF POSITIVE* - Collect Date/Time: 12/14/2022 18:02 Test Name Code Test Result Test Units Test Ref Rang e COLLECTION MODE: 03393-9 CLEAN CATCH N/A Color 5778-6 YELLOW N/A yellow Appearance 5767-9 CLEAR N/A clear Glucose urine 26613-1 100 N/A negative mg /dl Bilirubin 5770-3 NEGATIVE N/A negative Ketones 2514-8 NEGATIVE N/A negative mg/dl Spec gravity 5811-5 1.020 N/A 1.003 - 1.03 0 pH urine 2756-5 6.0 N/A 5.0 - 7.0 Protein 77147-1 NEGATIVE N/A negative mg/dl Urobilinogen 69960-5 0.2 N/A <or= 1 EU/dl Nitrite. 5802-4 NEGATIVE N/A negative Blood 5794-3 SMALL N/A negative Leukocytes. NEGATIVE N/A negative MICROSCOPIC INDICATED N/A WBCs. 66608-3 0-5 N/A 0-5 / hpf RBCs 83947-9 10-25 N/A 0-5 / hpf Epith cells 08278-4 0-5 N/A 0-5 / hpf Cell types squamous N/A Crystals none N/A none Bacteria minimal N/A none Mucus 8247-9 none N/A none Casts 52193-6 none N/A none /lpf Active Medications Unknown or Not Available. Medications Administered During Visit Medication Dose Units Frequency Route Date/Time of Last Dose FentaNYL INJ SYRINGE: 50MCG/ML 50 MCG X1 IVP 12/14/2022 19:25 Encounters Encounter Diagnosis Diagnosis Code Start Date Calculus of kidney N200 12/14/2022 Social History Smoking Status Code Start Date End Date Never smoker [id number] Patient Decision Aids Unknown or Not Available. Discharge Instructions You were admitted to [facility] on 12/14/2022 17:33 with a principal diagnosis of Calculus of kidney You had the following tests done:CBC W/ DIFFERENTIAL*COMPREHENSIVE METABOLIC PANEL (CMP)URINALYSIS WITH REFLEX CULT IF POSITIVE* You were discharged from [facility] on 12/14/2022 20:29 Should you have any questions prior to discharge, please contact a member of your healthcare team. If you have left the hospital and have any questions, please contact your primary care physician. Chief Complaint and Reason For Visit Chief Complaint Date of Onset LEFT SIDE PAIN Function Status Unknown or Not Available. Plan of Care Unknown or Not Available. Referral/Transition of Care Unknown or Not Available.
--- OUTSIDE RECORDS SUMMARY | 2022-12-21 11:55 | XMS_ITS | CCD ---
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 BMI (Body Mass Index) 30.79 kg/m^2 10/14/2022 08: 35 Initial VS Weight Measured 227 lbs 10/14/2022 08:35 Ini tial VS Height 72 in 10/14/2022 08:35 Initial VS BSA (Body Surface Area) 2.29 m^2 10/14/2022 0 8:35 Initial VS BP Systolic 200 mmHg 10/14/2022 08:35 Initial VS BP Diastolic 103 mmHg 10/14/2022 08:35 Initia l VS Respiratory Rate 18 bpm 10/14/2022 08:35 In itial VS Heart Rate 78 bpm 10/14/2022 08:35 Initial VS O2 % BldC Oximetry 97 % 10/14/2022 08:35 Initial VS Body Temperature 36.2 degrees 10/14/2022 08:35 In itial VS BMI (Body Mass Index) 31.33 kg/m^2 10/14/2022 17: 49 Most Recent VS Weight Measured 231.03 lbs 10/14/2022 17:49 Mos t Recent VS Height 72 in 10/14/2022 17:49 Most Rec ent VS BSA (Body Surface Area) 2.31 m^2 10/14/2022 1 7:49 Most Recent VS BP Systolic 149 mmHg 10/15/2022 11:23 Most Re cent VS BP Diastolic 81 mmHg 10/15/2022 11:23 Most R ecent VS Respiratory Rate 16 bpm 10/15/2022 11:[address] Recent VS Heart Rate 60 bpm 10/15/2022 11:23 Most Rec ent VS O2 % BldC Oximetry 99 % 10/15/2022 11:23 Most Recent VS Body Temperature 37 degrees 10/15/2022 11:[address] Recent VS Allergies Allergy Code Allergy Type Reaction Status LISINOPRIL 52978 Drug allergy LEG ACHES Active AMLODIPINE 81291 Drug allergy POLYURIA Active CONTRAST MEDIA, IODINE RELATED 0 Drug allergy Hiv es Active HYDROCHLOROTHIAZIDE 5487 Drug allergy DIZZINESS Act tito LOSARTAN 90493 Drug allergy LEG PAIN Active IODINE-CONTAINING 0 Drug allergy Hives Activ e METOPROLOL SUCCINATE 610112 Drug allergy BRADYCARDIA A ctive LABETALOL 6185 Drug allergy SOB Active RAMIPRIL 83716 Drug allergy DIZZINESS Active BISOPROLOL 00613 Drug allergy BRADYCARDIA Active Procedures Unknown or Not Available. History of Immunizations Unknown or Not Available. Problems Problem Code Start Date Resolved Date Status Cancer of lung 124146806 Active Cancer of esophagus 532404764 Activ e Hypothyroidism 23258349 Active HTN 87720518 Active NSTEMI 314607333 Active BPH 840911372 10/14/2022 Resolved Diaphragmatic hernia 20193227 10/14/2022 Reso lved Head trauma 71317406 10/14/2022 Resolved Primary OA of right hip 831573266 10/14/2022 R esolved Bradycardia 40493956 10/14/2022 Resolved Elevated PSA 715186968 10/14/2022 Resolved High grade prostatic intraep ithelial neoplasia 520965958 10/14/2022 Resolved Esophageal stricture 03085627 10/14/2022 Reso lved Results BASIC METABOLIC PANEL (BMP) - Collect Date/Time: 10/14/2022 08:45 Test Name Code Test Result Test Units Test Ref Rang e GLUCOSE 2345-7 66 mg/dL L=70 H=116 BUN 3094-0 13 mg/dL L=6 H=25 CREATININE 2160-0 0.99 mg/dL L=0.67 H=1.17 SODIUM SERUM 2951-2 145 mmol/L L=136 H=145 POTASSIUM SERUM 2823-3 3.4 mmol/L L=3.4 H=5 .2 CHLORIDE SERUM 2075-0 107 mmol/L L=96 H=110 CARBON DIOXIDE (CO2) 2027-9 28 mmol/L L=22 H=34 ANION GAP 07512-2 9.6 mmol/L CALCIUM SERUM 88861-7 9.0 mg/dL L=8.2 H=10. 2 AGE 82 years eGFR (non-Afr.Amer.) 77843-8 73 mL/min eGFR (Afr-[place]guillan) 59061-1 88 mL/min BNP (PRO-B NATRIURETIC PEPTI DE) - Collect Date/Time: 10/14/2022 08:45 Test Name Code Test Result Test Units Test Ref Rang e NT-proBNP 34818-9 79.0 pg/mL L=0.0 H=450 TROPONIN HIGH SENSITIVITY* - Collect Date/Time: 10/15/2022 06:35 Test Name Code Test Result Test Units Test Ref Rang e TROPONIN HS 112.3 pg/mL L=0.0 H=60.4 Specimen seq. RANDOM N/A TROPONIN HIGH SENSITIVITY* - Collect Date/Time: 10/14/2022 16:13 Test Name Code Test Result Test Units Test Ref Rang e TROPONIN HS 121.9 pg/mL L=0.0 H=60.4 Specimen seq. RANDOM N/A TROPONIN HIGH SENSITIVITY* - Collect Date/Time: 10/14/2022 09:40 Test Name Code Test Result Test Units Test Ref Rang e TROPONIN HS 128.1 pg/mL L=0.0 H=60.4 Specimen seq. 1 HOUR N/A TROPONIN HIGH SENSITIVITY* - Collect Date/Time: 10/14/2022 08:45 Test Name Code Test Result Test Units Test Ref Rang e TROPONIN HS 130.5 pg/mL L=0.0 H=60.4 Specimen seq. RANDOM N/A TSH THYROID STIMULATING HORM ONE* - Collect Date/Time: 10/14/2022 16:13 Test Name Code Test Result Test Units Test Ref Rang e TSH 3014-8 3.368 uIU/mL L=0.360 H=3.74 0 CBC W/ DIFFERENTIAL* - Colle ct Date/Time: 10/15/2022 06:35 Test Name Code Test Result Test Units Test Ref Rang e WBC 6690-2 3.34 th/cmm L=5.00 H=10.00 NEUT % 62.2 % L=40.0 H=80.0 LYMPH % 21.0 % L=10.0 H=50.0 MONO % 61359-1 8.7 % L=2.0 H=12.0 EOS % 6.9 % L=0.0 H=8.0 BASO % 0.9 % L=0.0 H=3.0 IG % 2514-8 0.3 % L=0.0 H=1.1 NRBC % 68210-5 0.0 % L=0.0 H=0.0 NEUT abs count 751-8 2.1 th/cmm L=1.6 H=8. 4 LYMPH abs count 731-0 0.7 th/cmm L=1.5 H=4 .0 MONO abs count 742-7 0.3 th/cmm L=0.2 H=1. 0 EOS abs count 711-2 0.2 th/cmm L=0.0 H=0.5 BASO abs count 704-7 0.0 th/cmm L=0.0 H=0. 2 IG abs count 46450-4 0.0 th/cmm L=0.0 H=0.1 NRBC abs count 07875-2 0.0 mil/cmm L=0.0 H=0. 0 RBC 789-8 4.79 mil/cmm L=4.30 H=6.20 HEMOGLOBIN 718-7 12.2 gm/dL L=13.0 H=17.0 HEMATOCRIT 4544-3 39 % L=45 H=52 MCV 787-2 82 fL L=82 H=92 MCH 785-6 25.5 pg L=27.0 H=31.0 MCHC 786-4 31.1 % L=32.0 H=36.0 RDW-SD 788-0 45.4 fL L=39.0 H=49.0 PLATELET COUNT 777-3 154 th/cmm L=150 H=45 0 CBC W/ DIFFERENTIAL* - [facility] ct Date/Time: 10/14/2022 08:45 Test Name Code Test Result Test Units Test Ref Rang e WBC 6690-2 5.43 th/cmm L=5.00 H=10.00 NEUT % 67.0 % L=40.0 H=80.0 LYMPH % 19.3 % L=10.0 H=50.0 MONO % 26790-2 8.5 % L=2.0 H=12.0 EOS % 3.9 % L=0.0 H=8.0 BASO % 0.9 % L=0.0 H=3.0 IG % 2514-8 0.4 % L=0.0 H=1.1 NRBC % 97666-8 0.0 % L=0.0 H=0.0 NEUT abs count 751-8 3.6 th/cmm L=1.6 H=8. 4 LYMPH abs count 731-0 1.1 th/cmm L=1.5 H=4 .0 MONO abs count 742-7 0.5 th/cmm L=0.2 H=1. 0 EOS abs count 711-2 0.2 th/cmm L=0.0 H=0.5 BASO abs count 704-7 0.1 th/cmm L=0.0 H=0. 2 IG abs count 37079-0 0.0 th/cmm L=0.0 H=0.1 NRBC abs count 74315-4 0.0 mil/cmm L=0.0 H=0. 0 RBC 789-8 4.97 mil/cmm L=4.30 H=6.20 HEMOGLOBIN 718-7 12.7 gm/dL L=13.0 H=17.0 HEMATOCRIT 4544-3 41 % L=45 H=52 MCV 787-2 83 fL L=82 H=92 MCH 785-6 25.6 pg L=27.0 H=31.0 MCHC 786-4 31.0 % L=32.0 H=36.0 RDW-SD 788-0 45.8 fL L=39.0 H=49.0 PLATELET COUNT 777-3 153 th/cmm L=150 H=45 0 PTT PARTIAL THROMBOPLASTIN T MERRITT* - Collect Date/Time: 10/15/2022 12:20 Test Name Code Test Result Test Units Test Ref Rang e PTT 94719-7 31.1 seconds L=24.5 H=32.8 PTT PARTIAL THROMBOPLASTIN T MERRITT* - Collect Date/Time: 10/15/2022 06:35 Test Name Code Test Result Test Units Test Ref Rang e PTT 03446-1 39.9 seconds L=24.5 H=32.8 PTT PARTIAL THROMBOPLASTIN T MERRITT* - Collect Date/Time: 10/15/2022 02:30 Test Name Code Test Result Test Units Test Ref Rang e PTT 05619-9 42.1 seconds L=24.5 H=32.8 PTT PARTIAL THROMBOPLASTIN T MERRITT* - Collect Date/Time: 10/14/2022 19:05 Test Name Code Test Result Test Units Test Ref Rang e PTT 13428-8 55.5 seconds L=24.5 H=32.8 FAYE COVID GENEXPERT* - Co llect Date/Time: 10/14/2022 09:40 Test Name Code Test Result Test Units Test Ref Rang e COVID 33848-4 NEGATIVE N/A Normal: Negati ve [facility]- 82232-3 INPATIENT/ED N/A Active Medications Medication Code Dose Units Frequency Route Modificatio n Start Date/Time Doxazosin 1MG Oral Tablet 285091 1 MILLIGRAMS DAILY ORAL 022 13:54 Prescription Detail TAKE 1 MILLIGRAMS ORAL DAILY Medications Administered During Visit Medication Dose Units Frequency Route Date/Time of Last Dose NITROGLYCERIN TABLET SL (25CT): 0.4MG 0.4 MG PRN Q5MIN SL 10/14/2022 10: 33 ASPIRIN TABLET CHEWABLE: 81MG 162 MG X1 CHEW 10/14/2022 09:22 ACETAMINOPHEN INJ IVPB: 1000MG/100ML 1000 MG X1 IVPB 10/14/2022 09:2 2 METOPROLOL TARTRATE TABLET: 25MG 25 MG X1 PO 10/14/2022 10:3 8 HEPARIN INJ SDV: 5,000 UNITS/ML 6000 UNITS X1 IVP 10/14/2022 12:4 5 HEPARIN PREMIX IV BA,000UNITS/250ML 1200 UNITS X1 IV 10/14/2022 12:50 LEVOTHYROXINE TABLET: 75MCG 75 MCG DAILY PO 10/15/2022 04:43 ASPIRIN TABLET E.C.: 81MG 81 MG DAILY WITH CARMELLA D PO 10/15/2022 08:16 HEPARIN PREMIX IV BA,000UNITS/250ML 1400 UNITS CONT IV 10/15/2022 13:10 DOXAZOSIN TABLET: 2MG 1 MG DAILY PO 10/15/2022 15:11 Encounters Encounter Diagnosis Diagnosis Code Start Date Other chest pain R0789 10/14/2022 Social History Smoking Status Code Start Date End Date Never smoker [id number] Patient Decision Aids Unknown or Not Available. Discharge Instructions You were admitted to [facility] on 10/14/2022 13:59 with a principal diagnosis of Other chest pain You had the following tests done:PTT PARTIAL THROMBOPLASTIN TIME*CBC W/ DIFFERENTIAL*PTT PARTIAL THROMBOPLASTIN TIME*TROPONIN HIGH SENSITIVITY*PTT PARTIAL THROMBOPLASTIN TIME*PTT PARTIAL THROMBOPLASTIN TIME*TROPONIN HIGH SENSITIVITY*TSH THYROID STIMULATING HORMONE*[facility] COVID GENEXPERT*TROPONIN HIGH SENSITIVITY*BASIC METABOLIC PANEL (BMP)BNP (PRO-B NATRIURETIC PEPTIDE)CBC W/ DIFFERENTIAL*TROPONIN HIGH SENSITIVITY* You were discharged from [facility] on 10/15/2022 15:25 Should you have any questions prior to discharge, please contact a member of your healthcare team. If you have left the hospital and have any questions, please contact your primary care physician. Chief Complaint and Reason For Visit Chief Complaint Date of Onset NON ST SEGMENT ELEVATION ID HYPERTENSIVE URGENCY 10/14/2022 Function Status Unknown or Not Available. Plan of Care Unknown or Not Available. Referral/Transition of Care Unknown or Not Available.
[2022-12-21 12:08] VITALS: BP 156/82
== END 2022-12-21 12:13 | disposition home or self-care (01) ==
PROVIDERS: Emergency Provider Registered Nurse Emergency; PCP Family Medicine
DX: R22.41 Localized swelling, mass and lump, right lower limb (principal); M19.90 Unspecified osteoarthritis, unspecified site; J45.909 Unspecified asthma, uncomplicated; I10 Essential (primary) hypertension; Z96.0 Presence of urogenital implants; Z85.01 Personal history of malignant neoplasm of esophagus; Z86.002 Personal history of in-situ neoplasm of other and unspecified genital organs
CPT/HCPCS: 99281

== ENCOUNTER → 2022-12-31 13:47 | Outpatient (BNVA) | payer MEDICARE, SELFPAY | PROVIDERS: PCP Family Medicine; Referring Provider Family Medicine; Visit Provider Urology | DX: N20.1 Calculus of ureter (principal); Z96.0 Presence of urogenital implants | CPT/HCPCS: 99213 ==

== ENCOUNTER 2023-01-01 11:28 | Emergency (ER) | payer MEDICARE, SELFPAY ==
[2023-01-01 11:31] VITALS: BP 179/92; PULSE 67; RESP 16; TEMP 36.6; O2SAT 97
--- NOTE | 2023-01-01 11:57 | ED.GENADUL_ITS ---
Discharge Plan Disposition Patient Disposition: Home Discharge Details Clinical Impression: Encounter for Sandhu catheter removal Primary Care Provider: Chris Farah ED Provider: Rocío Caldera Home Meds and New Rx's Prescriptions: Continued doxazosin 2 mg tablet 1 mg PO HS levothyroxine 88 mcg tablet 88 mcg PO DAILY Patient Comments: TAKE ONE TABLET BY MOUTH EVERY DAY Discharge Instructions Additional Instructions: Increase fluid intake. Void when able with the goal to urinate within six hours after removal of the catheter. Please return should you have symptoms of urinary retention, fever, bladder pain, decreased stream or urination Referrals: Lamonte Heredia MD [ [facility] STAFF PHYSICIAN] - Discharge Data Discharge Date/Time-TO BE ENTERED AT DEPARTURE: 01/01/23 12:45 Medical Decision Making Patient presents for removal of Sandhu catheter, resting comfortably in room, no acute distress, Sandhu catheter will be removed by nursing staff and patient is encouraged to continue to hydrate and return to the emergency department should he have signs or symptoms of retention We discussed risk associated with retention after removing Sandhu catheter and patient is aware of what to examine for Return precautions reviewed in detail and patient expressed understanding HPI General Date/Time Provider Initiated Documentation: 01/01/23 11:32 . HPI Narrative: This 82-year-old male presents with request for Sandhu catheter removal today. He is status post cystoscopy and was supposed to have his catheter removed yesterday however out of concern for potential need to return for replacement of catheter, this was withheld. Patient denies any current complaints, he has been voiding without difficulty and has had normal output from his catheter. He denies any fever or chills. He denies any back pain. Related Data Home Medications Medication Instructions Recorded Confirmed doxazosin 2 mg tablet 1 mg PO HS 12/18/22 01/01/23 levothyroxine 88 mcg tablet 88 mcg PO DAILY 12/18/22 01/01/23 Allergies Allergy/AdvReac Type Severity Reaction Status Date / Time amlodipine Allergy polyuria Verified 01/01/23 11:40 bisoprolol Allergy bradycardia Verified 01/01/23 11:40 diltiazem [From Diltia XT] Allergy Edema Verified 01/01/23 11:40 labetalol Allergy trouble Verified 01/01/23 11:40 breathing lisinopril Allergy leg pain Verified 01/01/23 11:40 losartan Allergy leg pain Verified 01/01/23 11:40 metoprolol Allergy bradycardia Verified 01/01/23 11:40 General Stated Complaint: [employer] NEFTALI: 4 PFSH All Active Problems (Updated 01/01/23 @ 12:11 by AMANDA Torres) Encounter for Sandhu catheter removal (Acute) Leg swelling (Acute) Sandhu catheter in place (Acute) Elevated PSA (Acute) High grade prostatic intraepithelial neoplasia (Acute) BPH loc w urin obs/LUTS (Acute) Nail dystrophy (Acute) Bilateral edema of lower extremity (Acute) Medical History Arthritis Asthma BPH (benign prostatic hyperplasia) Enlarged prostate Esophageal cancer Radiation and Chemo and 2/3 of esphagous removed in [place] (03/22/20)-In remission Glaucoma Hemorrhoids Hypertension Hypothyroidism Incomplete emptying of bladder Lung cancer Radiation therapy 08/2022-current status: no treatment as of this pre op 12/18/22 Nocturia Normal colonoscopy Obesity Thyroid disease Surgical History H/O inguinal hernia repair H/O umbilical hernia repair History of total bilateral knee replacement History of total right hip replacement Social History Smoking/Tobacco Use Status: Former Tobacco Use Quit Date: 11/03/84 Smoking risk assessment performed?: Yes Alcohol Intake: never Drug use: Never Substance use type: does not use Current gender identity: male Do you feel safe at home: Yes Do you feel safe in your relationship?: Yes Exam Narrative Exam Narrative: Patient resting comfortably in room, Sandhu catheter draining appropriately, small debris noted in tubing, pale yellow urine noted Course Vital Signs Vital signs: Vital Signs Temperature 36.6 C 01/01/23 11:31 Pulse 67 01/01/23 11:31 Respiratory Rate 16 01/01/23 11:31 Blood Pressure 179/92 H 01/01/23 11:31 Pulse Oximetry 97 01/01/23 11:31 Temperature 36.6 C 01/01/23 11:31 Temperature Source Tympanic 01/01/23 11:31 Pulse 67 01/01/23 11:31 Respiratory Rate 16 01/01/23 11:31 Respiratory Effort Normal, Non-Labored 01/01/23 11:41 Blood Pressure 179/92 H 01/01/23 11:31 Blood Pressure Position Sitting 01/01/23 11:31 Pulse Oximetry 97 01/01/23 11:31 Oxygen Delivery Method Room Air 01/01/23 11:31 Oxygen Flow Rate 0 01/01/23 11:31 Pain Level 0 01/01/23 11:31
[2023-01-01 12:00] VITALS: BP 179/92; PULSE 67; RESP 16; TEMP 36.6; O2SAT 97
== END 2023-01-01 12:45 | disposition home or self-care (01) ==
PROVIDERS: Emergency Provider Physician Assistant; PCP Family Medicine
DX: Z43.6 Encounter for attention to other artificial openings of urinary tract (principal)

== ENCOUNTER → 2023-01-08 10:48 | Outpatient (BNVA) | payer MEDICARE, SELFPAY | PROVIDERS: PCP Family Medicine; Referring Provider Family Medicine; Visit Provider Nurse Practitioner Gerontology | DX: N40.1 Benign prostatic hyperplasia with lower urinary tract symptoms (principal); R39.89 Other symptoms and signs involving the genitourinary system; R97.20 Elevated prostate specific antigen [PSA] | CPT/HCPCS: 51798; 81003; 99214 ==

== ENCOUNTER 2023-01-28 10:49 | Outpatient (CLI) | payer MEDICARE, SELFPAY | END 2023-01-28 10:50 | disposition home or self-care (01) | LOC: ORDER INT 10:56 | PROVIDERS: PCP Family Medicine; Referring Provider Family Medicine; Visit Provider Urology | DX: N21.1 Calculus in urethra (principal) ==

== ENCOUNTER → 2023-01-28 10:49 | Outpatient (BNVA) | payer MEDICARE, SELFPAY | PROVIDERS: PCP Family Medicine; Referring Provider Family Medicine; Visit Provider Urology | DX: N21.0 Calculus in bladder (principal); N40.1 Benign prostatic hyperplasia with lower urinary tract symptoms; N20.1 Calculus of ureter | CPT/HCPCS: 76775 ==

== ENCOUNTER 2023-03-05 02:30 | Outpatient (CLI) | payer MEDICARE, SELFPAY ==
[2023-03-05 18:28] LABS: PSA, Diagnostic 13.1 ng/mL (<=6.5)
== END 2023-03-05 02:31 | disposition home or self-care (01) ==
LOC: LBO 02:30
PROVIDERS: PCP Family Medicine; Visit Provider Nurse Practitioner Gerontology
DX: N40.1 Benign prostatic hyperplasia with lower urinary tract symptoms (principal); N42.31 Prostatic intraepithelial neoplasia; R97.20 Elevated prostate specific antigen [PSA]
CPT/HCPCS: 36415; 84153

== ENCOUNTER → 2023-03-12 10:50 | Outpatient (BNVA) | payer MEDICARE, SELFPAY | PROVIDERS: PCP Family Medicine; Visit Provider Nurse Practitioner Gerontology | DX: N40.1 Benign prostatic hyperplasia with lower urinary tract symptoms (principal); R97.20 Elevated prostate specific antigen [PSA]; N42.31 Prostatic intraepithelial neoplasia | CPT/HCPCS: 51798; 99214 ==

== ENCOUNTER 2023-05-22 14:56 | Outpatient (CLI) | payer MEDICARE, SELFPAY ==
--- NOTE | 2023-05-22 14:30 | DI.RAD_ITS ---
Exam(s) XR FOOT LT COMPLETE EXAM: XR FOOT LT COMPLETE CLINICAL HISTORY: rule out chip fracture from midfoot M79.672 PAIN LEFT FOOT. TECHNIQUE: 2D digital imaging was performed of the left foot. Three images were obtained. AP, obli que and lateral views were obtained. COMPARISON: No exams were available for comparison FINDINGS: BONES: No acute fracture is present. No bony destructive lesion is seen. There is a large plantar patsy caneal spur. There also prominent hypertrophic changes seen at the base of the 1st TMT joint. JOINTS: No dislocation present. SOFT TISSUE: Normal. IMPRESSION: No acute fracture or dislocation. DATA REPOSITORY: RADIATION DOSE DELIVERED:
== END 2023-05-22 15:16 ==
LOC: DI 14:57
PROVIDERS: PCP Family Medicine; Visit Provider Podiatrist
DX: M79.672 Pain in left foot (principal)
CPT/HCPCS: 73630

== ENCOUNTER → 2023-09-12 02:07 | Outpatient (CLI) | payer MEDICARE, SELFPAY ==
--- NOTE | 2023-09-12 07:15 | DI.US_ITS ---
Exam(s) US RENAL EXAM: US RENAL CLINICAL HISTORY: ? hydronephrosis,BLADDER AND KIDNEY STONES,N21.0,N20.0. TECHNIQUE: Booker scale, color and spectral Doppler were used. COMPARISON: CT CT CHEST/ABD/PEL WO from 09/12/2023 FINDINGS: Renal size in cm: Right: 11.4 left: 12.0 Echogenicity: Normal Hydronephrosis: No Cyst or mass: 1.4 centimeters cyst mid right kidney. 2.8 centimeter cyst lower pole right kidney. Nephrolithiasis: 2 millimeter stone upper pole left kidney. No right renal calculi visible. Tiny st one noted lower pole right kidney on CT of the same day. Bladder:Wall thickened and trabeculated. A few small diverticula noted. No calculi identified. Prevoid vol:152 cc Postvoid vol:134 cc Prostate volume 162 cc. IMPRESSION: Markedly enlarged prostate. Markedly elevated postvoid residual. Bladder wall thickening and trabec ulation with few small diverticula. No evidence of hydronephrosis. Small bilateral renal calculi. DATA REPOSITORY:
== END ==
PROVIDERS: PCP Family Medicine; Visit Provider Urology
DX: N20.0 Calculus of kidney (principal); N21.0 Calculus in bladder; Z98.890 Other specified postprocedural states; R07.81 Pleurodynia
CPT/HCPCS: 76770

== ENCOUNTER 2023-09-12 10:01 | Emergency (ER) | payer MEDICARE, SELFPAY ==
--- NOTE | 2023-09-12 10:00 | DI.CT_ITS ---
Exam(s) CT CHEST/ABD/PEL WO CT LUMBAR SPINE RECONS EXAM: CT CHEST/ABD/PEL WO CLINICAL HISTORY: fall, midline L1 and bilateral rib pain. TECHNIQUE: Imaging Protocol: Axial computed tomography images with coronal and sagittal reformatted images were created and reviewed CONTRAST MATERIAL: Intravenous: Omnipaque 350 Contrast volume:100 ml Oral: no COMPARISON: CT CT CHEST WO CONTRAST from 05/29/[address] ABDOMEN PELVIS WO CONTRAST from 05/29/[address] LUMBAR SPINE RECONS from 09/12/2023 FINDINGS: CHEST: Tracheobronchial tree: Patent where visualized. Pulmonary parenchyma: Stable area of scarring lateral aspect of the right middle lobe. No consolidat ion or dominant measurable mass. Pleura: No effusion or pneumothorax. Lymph nodes: Within normal limits. Aorta: Thoracic portion non-dilated. Heart: Mildly enlarged. Mild coronary artery calcifications. Mediastinum: Status post gastric pull-through. Unchanged in appearance. Bones: Stable appearance of degenerative changes. Large some calcification adjacent to xiphoid is un changed. Bones appear osteoporotic. No compression fractures. Old right posterior rib deformities. ABDOMEN and PELVIS: Liver: Normal density. No measurable mass. Gallbladder and biliary tract: No evidence of stones or wall thickening. No biliary dilatation. Pancreas: Normal density, no abnormal calcifications or inflammatory process. Spleen: Normal. Kidneys: Normal size, contour and axis. A few tiny nonobstructing calculi bilaterally. No suspicious masses seen. Bilateral renal cysts. Adrenal glands: No masses seen. Aorta: Abdominal portion non-dilated. Mild atherosclerotic changes. Lymph nodes: Within normal limits. Soft tissues: Large fatty containing left inguinal hernia. Bladder: Trabeculated wall. Small diverticula. Bowel: No obstruction or bowel wall thickening. Diverticulosis. No evidence of diverticulitis. Peritoneal cavity: No ascites. No focal collection or mesenteric inflammatory response. Bones: Right hip prosthesis. Degenerative changes left hip and lumbar spine. No acute fracture. Mi ld scoliosis. Reproductive organs: Prostate massively enlarged. IMPRESSION: No acute abnormality in the chest, abdomen or pelvis.. Status post gastric pull-through which appears stable. Stable area of scarring right middle lobe. RADIATION DOSE DELIVERED: Total DLP DATA REPOSITORY: All CT scans at this facility are submitted to the National Radiology Data Registry (NRDR) Dose Index Registry (DIR) with the [employer] (ACR). RADIATION OPTIMIZATION: All CT scans at this facility use at least one of these dose optimization te chniques: automated exposure control; mA and/or kV adjustment per patient size (includes targeted exa ms where dose is matched to clinical indication); or iterative reconstruction.
[2023-09-12 10:04] VITALS: BP 170/82; PULSE 66; RESP 20; TEMP 36.4; O2SAT 100
--- NOTE | 2023-09-12 10:16 | W.ED.GENAD ---
Discharge Plan Disposition Patient Disposition: Home Discharge Details Clinical Impression: Back contusion, Bilateral contusion of ribs Primary Care Provider: Chris Farah ED Provider: Kobi Clay Home Meds and New Rx's Prescriptions: No Action ketoconazole 2 % cream 1 applic topical DAILY 90 Days Qty: 60 0RF Rx Instructions: Apply to toenails once daily cholecalciferol (vitamin D3) 50 mcg (2,000 unit) capsule 50 mcg PO DAILY doxazosin 2 mg tablet 2 mg PO HS Qty: 90 3RF Rx Instructions: may take 2 at bedtime ondansetron HCl 4 mg tablet 4 mg PO Q8H PRN levothyroxine 88 mcg tablet 88 mcg PO DAILY Patient Comments: TAKE ONE TABLET BY MOUTH EVERY DAY Discharge Instructions Instructions: How to Use an Incentive Spirometer (ED), Contusion in Adults (ED), Rib Contusion (ED) Additional Instructions: At this time your CAT scan thankfully shows no evidence of trauma or fracture for your back, spine, ribs, chest, or abdomen. I suspect you have a notable bruise and contusion in those areas, but no fracture. Regular ribs have been continuous, you do not breathe as deeply as normal. Please make sure you are using the incentive spirometer to maintain good inhalations/respirations, and to prevent pneumonia. Please continue to take Tylenol and Motrin as needed for pain. If you notice any worsening of your symptoms, or any new symptoms such as vomiting, diarrhea, fever, chills, shortness of breath, chest pain, numbness, weakness, or fainting , please return immediately to the emergency department for reevaluation. Please follow up with your primary care provider as soon as possible for reassessment and reevaluation. As always, it was a pleasure participating in your medical care today. Referrals: Chris Farah [Primary Care Provider] - Discharge Data Discharge Date/Time-TO BE ENTERED AT DEPARTURE: 09/12/23 12:05 Medical Decision Making 83-year-old male with a past medical history of previous esophageal cancer in 2019 with subsequent surgery, presents today for evaluation of back pain. Patient states that he [place] in the [place] when he fell and landed on his back. He developed pain in his low back and posterior chest after that. Pain is made worse with movement and breathing. He did take Tylenol and Motrin last night and this did improve his symptoms somewhat. He denies any numbness tingling or weakness. He denies extremity pain. He denies pain in his head, or trauma to the head. No other complaints at this time. No other modifying factors. Physical exam demonstrates mild lumbar spinal tenderness. No guarding or rebound. No focal neurologic deficits to suggest cauda equina syndrome, we will get a CT scan to evaluate for acute fracture. Monitor closely and reassess. [address] scan has returned, no evidence of acute process, fracture, bleed, pneumothorax, or other abnormality per radiology. Patient feels well. Patient stable for discharge. Discussed red flags which to return. Suspect contusion and muscle sprain. Recommend continued NSAIDs and heating pad at home. I have extensively reviewed the treatment plan and discharge instructions with the patient and their family. I have addressed all patient concerns at this time. The patient and family was made aware of what symptoms to monitor for that would warrant a return to the emergency department. Discussed the plan with the patient and family, they demonstrate verbal understanding and agreement with our assessment and plan at this time. The documentation in this chart was dictated using [employer] dictation software. Please excuse any dictation errors. FINDINGS: CHEST: Tracheobronchial tree: Patent where visualized. Pulmonary parenchyma: Stable area of scarring lateral aspect of the right middle lobe. No consolidation or dominant measurable mass. Pleura: No effusion or pneumothorax. Lymph nodes: Within normal limits. Aorta: Thoracic portion non-dilated. Heart: Mildly enlarged. Mild coronary artery calcifications. Mediastinum: Status post gastric pull-through. Unchanged in appearance. Bones: Stable appearance of degenerative changes. Large some calcification adjacent to xiphoid is unchanged. Bones appear osteoporotic. No compression fractures. Old right posterior rib deformities. ABDOMEN and PELVIS: Liver: Normal density. No measurable mass. Gallbladder and biliary tract: No evidence of stones or wall thickening. No biliary dilatation. Pancreas: Normal density, no abnormal calcifications or inflammatory process. Spleen: Normal. Kidneys: Normal size, contour and axis. A few tiny nonobstructing calculi bilaterally. No suspicious masses seen. Bilateral renal cysts. Adrenal glands: No masses seen. Aorta: Abdominal portion non-dilated. Mild atherosclerotic changes. Lymph nodes: Within normal limits. Soft tissues: Large fatty containing left inguinal hernia. Bladder: Trabeculated wall. Small diverticula. Bowel: No obstruction or bowel wall thickening. Diverticulosis. No evidence of diverticulitis. Peritoneal cavity: No ascites. No focal collection or mesenteric inflammatory response. Bones: Right hip prosthesis. Degenerative changes left hip and lumbar spine. No acute fracture. Mild scoliosis. Reproductive organs: Prostate massively enlarged. IMPRESSION: No acute abnormality in the chest, abdomen or pelvis.. Status post gastric pull-through which appears stable. Stable area of scarring right middle lobe. FINDINGS: CHEST: Tracheobronchial tree: Patent where visualized. Pulmonary parenchyma: Stable area of scarring lateral aspect of the right middle lobe. No consolidation or dominant measurable mass. Pleura: No effusion or pneumothorax. Lymph nodes: Within normal limits. Aorta: Thoracic portion non-dilated. Heart: Mildly enlarged. Mild coronary artery calcifications. Mediastinum: Status post gastric pull-through. Unchanged in appearance. Bones: Stable appearance of degenerative changes. Large some calcification adjacent to xiphoid is unchanged. Bones appear osteoporotic. No compression fractures. Old right posterior rib deformities. ABDOMEN and PELVIS: Liver: Normal density. No measurable mass. Gallbladder and biliary tract: No evidence of stones or wall thickening. No biliary dilatation. Pancreas: Normal density, no abnormal calcifications or inflammatory process. Spleen: Normal. Kidneys: Normal size, contour and axis. A few tiny nonobstructing calculi bilaterally. No suspicious masses seen. Bilateral renal cysts. Adrenal glands: No masses seen. Aorta: Abdominal portion non-dilated. Mild atherosclerotic changes. Lymph nodes: Within normal limits. Soft tissues: Large fatty containing left inguinal hernia. Bladder: Trabeculated wall. Small diverticula. Bowel: No obstruction or bowel wall thickening. Diverticulosis. No evidence of diverticulitis. Peritoneal cavity: No ascites. No focal collection or mesenteric inflammatory response. Bones: Right hip prosthesis. Degenerative changes left hip and lumbar spine. No acute fracture. Mild scoliosis. Reproductive organs: Prostate massively enlarged. IMPRESSION: No acute abnormality in the chest, abdomen or pelvis.. Status post gastric pull-through which appears stable. Stable area of scarring right middle lobe. HPI General Date/Time Provider Initiated Documentation: 09/12/23 10:03. HPI Narrative: 83-year-old male with a past medical history of previous esophageal cancer in 2020 with subsequent surgery, presents today for evaluation of back pain. Patient states that he was out walking in the [place] yesterday when he fell and landed on his back. He developed pain in his low back and posterior chest after that. Pain is made worse with movement and breathing. He did take Tylenol and Motrin last night and this did improve his symptoms somewhat. He denies any numbness tingling or weakness. He denies extremity pain. He denies pain in his head, or trauma to the head. No other complaints at this time. No other modifying factors. Related Data Home Medications Medication Instructions Recorded Confirmed levothyroxine 88 mcg tablet 88 mcg PO DAILY 12/18/22 08/14/23 cholecalciferol (vitamin D3) 50 50 mcg PO DAILY 01/13/23 08/14/23 mcg (2,000 unit) capsule doxazosin 2 mg tablet 2 mg PO HS BPH #90 tabs 02/06/23 08/14/23 ondansetron HCl 4 mg tablet 4 mg PO Q8H PRN 05/15/23 08/14/23 ketoconazole 2 % topical cream 1 applic topical DAILY 3 months 08/14/23 08/14/23 #60 grams Previous Rx's Medication Instructions Recorded doxazosin 2 mg tablet 2 mg PO HS BPH #90 tabs 02/06/23 ketoconazole 2 % topical cream 1 applic topical DAILY 3 months 08/14/23 #60 grams Allergies Allergy/AdvReac Type Severity Reaction Status Date / Time amlodipine Allergy polyuria Verified 08/14/23 13:07 bisoprolol Allergy bradycardia Verified 08/14/23 13:07 diltiazem [From Diltia XT] Allergy Edema Verified 08/14/23 13:07 labetalol Allergy trouble Verified 08/14/23 13:07 breathing lisinopril Allergy leg pain Verified 08/14/23 13:07 losartan Allergy leg pain Verified 08/14/23 13:07 metoprolol Allergy bradycardia Verified 08/14/23 13:07 General Stated Complaint: Fall/Non TraumaCriteria NEFTALI: 3 Review of Systems All systems reviewed & are unremarkable except as noted in HPI and below PFSH All Active Problems (Updated 09/12/23 @ 11:57 by Kobi Clay DO) Bilateral contusion of ribs (Acute) Back contusion (Acute) Tinea pedis (Acute) Onychomycosis (Acute) Hx of long-term (current) use of anticoagulants (Acute) Venous insufficiency (Acute) Foot pain, left (Acute) Callus (Acute) 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) Bilateral edema of lower extremity (Acute) Nail dystrophy (Acute) BPH loc w urin obs/LUTS (Acute) High grade prostatic intraepithelial neoplasia (Acute) Hypothyroidism (Chronic) Elevated PSA (Acute) Hypertension (Chronic) Medical History Bladder stone Lung cancer Radiation therapy 08/2022-current status: no treatment as of this pre op 12/18/22 Esophageal cancer Radiation and Chemo and 2/3 of esphagous removed in [place] (03/22/20)-In remission Normal colonoscopy Hemorrhoids Obesity Incomplete emptying of bladder Nocturia BPH (benign prostatic hyperplasia) Arthritis Enlarged prostate Asthma Glaucoma Surgical History History of total right hip replacement H/O inguinal hernia repair H/O umbilical hernia repair History of total bilateral knee replacement Social History Smoking/Tobacco Use Status: Former Tobacco Use Quit Date: 11/03/84 Pack-years: 30 Smoking risk assessment performed?: Yes Alcohol Intake: never Drug use: Never Substance use type: does not use Housing: house Current gender identity: male Do you feel safe at home: Yes Do you feel safe in your relationship?: Yes Exam Narrative Exam Narrative: 1.Const: Well-nourished, Well-developed, appearing stated age 2.Eyes: PERRL, no conjunctival injection, and symmetrical lids. 3.ENT: Atraumatic external nose and ears. Moist MM. Neck: Symmetric, trachea midline, No thyromegaly. 4.CVS: +S1/S2, No murmurs or gallops. Peripheral pulses 2+ and equal in all extremities. Brisk capillary refill in all extremities. 5.RESP: Unlabored respiratory effort. Clear to auscultation bilaterally. No wheezes rales or rhonchi 6.GI: Soft, Nontender/Nondistended, No hepatosplenomegaly. No guarding or rebound. 7.MSK: Normocephalic/Atraumatic, Extremities w/o deformity or ttp No cyanosis or clubbing, Normal movement of all extremities. No midline tenderness to palpation over the CT spine. Midline tenderness over L1 and L2. Paraspinal tenderness in this area as well, as well as lateral rib tenderness in this area. Normal ROM in flexion, extension, side bend, and rotation. Patient has +5 out of 5 strength in the lower extremities in dorsiflexion and plantarflexion, knee flexion and extension, hip flexion and extension. Normal strength for dorsiflexion and plantar flexion of the great toe bilaterally. There is +2 over 2 dorsalis pedis pulses bilaterally. There is normal sensation to the skin with light touch at the foot, knee, and hip. Normal saddle sensation. Good sensation over the deep sural nerve area bilaterally. Rectal exam demonstrates good rectal tone with excellent dedra-rectal sensation. Reflexes are +2 over 4 in the patellar reflex bilaterally. +5 out of 5 strength in the medial, ulnar, radial nerve distribution bilaterally in the hands as well as intact light touch sensation to these dermatomes on the hands 8.Skin: Warm, Dry. No rashes or lesions. 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 Sensation grossly intact, no focal neurologic deficits. 10.Psych: (AAO) x3. Appropriate mood and affect Course Vital Signs Vital signs: Vital Signs Temperature 36.4 C 09/12/23 10:04 Pulse 66 09/12/23 10:04 Respiratory Rate 20 09/12/23 10:04 Blood Pressure 170/82 H 09/12/23 10:04 Pulse Oximetry 100 09/12/23 10:04 Temperature 36.4 C 09/12/23 10:04 Temperature Source Oral 09/12/23 10:04 Pulse 66 09/12/23 10:04 Respiratory Rate 20 09/12/23 10:04 Blood Pressure 170/82 H 09/12/23 10:04 Blood Pressure Position Sitting 09/12/23 10:04 Pulse Oximetry 100 09/12/23 10:04 Oxygen Delivery Method Room Air 09/12/23 10:04 Oxygen Flow Rate 0 09/12/23 10:04
== END 2023-09-12 12:05 | disposition home or self-care (01) ==
PROVIDERS: Emergency Provider Student in an Organized Health Care Education/Training Program; PCP Family Medicine
DX: S30.0XXA Contusion of lower back and pelvis, initial encounter (principal); S20.223A Contusion of bilateral back wall of thorax, initial encounter; N40.0 Benign prostatic hyperplasia without lower urinary tract symptoms; Z96.641 Presence of right artificial hip joint; Z98.84 Bariatric surgery status; Z85.01 Personal history of malignant neoplasm of esophagus; Z87.891 Personal history of nicotine dependence
CPT/HCPCS: 71250; 76770; 99285; 74176; 99284

== ENCOUNTER 2023-09-18 04:43 | Outpatient (CLI) | payer MEDICARE, SELFPAY ==
[2023-09-18 13:15] LABS: TSH 4.06 uIU/mL (0.36-3.74)
[2023-09-19 19:43] LABS: PSA, Diagnostic 15.7 ng/mL (<=6.5)
== END 2023-09-18 04:44 | disposition home or self-care (01) ==
LOC: LBO 04:43
PROVIDERS: Family Medicine; PCP Family Medicine; Visit Provider Nurse Practitioner Gerontology
DX: N40.1 Benign prostatic hyperplasia with lower urinary tract symptoms (principal); N42.31 Prostatic intraepithelial neoplasia; R97.20 Elevated prostate specific antigen [PSA]; E03.9 Hypothyroidism, unspecified
CPT/HCPCS: 11721; 36415; 84153; 84443

== ENCOUNTER → 2023-10-01 14:26 | Outpatient (BNVA) | payer MEDICARE, SELFPAY | PROVIDERS: PCP Family Medicine; Visit Provider Nurse Practitioner Gerontology | DX: N40.1 Benign prostatic hyperplasia with lower urinary tract symptoms (principal); N13.8 Other obstructive and reflux uropathy; R97.20 Elevated prostate specific antigen [PSA]; N42.31 Prostatic intraepithelial neoplasia; N20.0 Calculus of kidney | CPT/HCPCS: 99214 ==

== ENCOUNTER 2023-10-15 09:44 | Outpatient (CLI) | payer MEDICARE, SELFPAY ==
[2023-10-15 18:46] LABS: PSA, Diagnostic 14.6 ng/mL (<=6.5)
== END 2023-10-15 09:45 | disposition home or self-care (01) ==
LOC: LBO 09:45
PROVIDERS: PCP Family Medicine; Visit Provider Nurse Practitioner Gerontology
DX: N40.1 Benign prostatic hyperplasia with lower urinary tract symptoms (principal); R97.20 Elevated prostate specific antigen [PSA]
CPT/HCPCS: 36415; 84153

== ENCOUNTER → 2023-10-30 13:04 | Outpatient (BNVA) | payer MEDICARE, SELFPAY | PROVIDERS: PCP Family Medicine; Referring Provider Family Medicine; Visit Provider Urology | DX: K40.90 Unilateral inguinal hernia, without obstruction or gangrene, not specified as recurrent (principal); N42.31 Prostatic intraepithelial neoplasia; R35.0 Frequency of micturition; R97.20 Elevated prostate specific antigen [PSA] | CPT/HCPCS: 99214 ==

== ENCOUNTER → 2023-12-03 08:32 | Outpatient (BNVA) | payer MEDICARE, SELFPAY | PROVIDERS: PCP Family Medicine; Referring Provider Urology; Visit Provider Surgery | DX: K46.9 Unspecified abdominal hernia without obstruction or gangrene (principal) | CPT/HCPCS: 99214 ==

== ENCOUNTER → 2023-12-03 09:39 | Outpatient (BNVA) | payer MEDICARE, SELFPAY | PROVIDERS: PCP Family Medicine; Referring Provider Family Medicine; Visit Provider Podiatrist | CPT/HCPCS: 11720-NC ==

== ENCOUNTER 2024-01-01 10:05 | Emergency (ER) | payer MEDICARE, SELFPAY ==
[2024-01-01 10:14] VITALS: BP 237/111; PULSE 65; RESP 16; TEMP 36.5; O2SAT 95
--- NOTE | 2024-01-01 10:38 | ED.GENADUL_ITS ---
Discharge Plan Discharge Details Chief Complaint: Abd Prob Primary Care Provider: Dayne Urban ED Provider: Selina Navarro Home Meds and New Rx's Prescriptions: No Action doxazosin 2 mg tablet 2 mg PO HS Qty: 90 3RF Rx Instructions: may take 2 at bedtime ondansetron HCl 4 mg tablet 4 mg PO Q8H PRN ketoconazole 2 % cream 1 applic topical DAILY Qty: 60 0RF Rx Instructions: apply toenails daily levothyroxine 88 mcg tablet 88 mcg PO DAILY Patient Comments: TAKE ONE TABLET BY MOUTH EVERY DAY HPI General Date/Time Provider Initiated Documentation: 01/01/24 10:22 . HPI Narrative: Skyler is an 83-year-old male with history of lung cancer and HTN who presents to the emergency dept for evaluation of LLQ pain in femoral area. He reports he has a known hernia, has a surgery for repair scheduled on January 08. He was told by Dr Carmona to call if he developed pain (he called this morning, was advised to come in for eval). He reports he started having abdominal discomfort around midnight in the area of the hernia; this has persisted at 5/10 since onset; has responded to PO tylenol. He denies associated fever/chills, nausea/vomiting, change in bowel function (has soft brown stool today, no black/tarry stools), change in testicles or penis. Slight difficulty with urination- no pain per pt. He did have abdominal surgery previously- esophageal surgery and R hernia repair. Related Data Home Medications Medication Instructions Recorded Confirmed levothyroxine 88 mcg tablet 88 mcg PO DAILY 12/18/22 01/01/24 doxazosin 2 mg tablet 2 mg PO HS BPH #90 tabs 02/06/23 01/01/24 ondansetron HCl 4 mg tablet 4 mg PO Q8H PRN 05/15/23 01/01/24 ketoconazole 2 % topical cream 1 applic topical DAILY #60 grams 10/02/23 01/01/24 Previous Rx's Medication Instructions Recorded doxazosin 2 mg tablet 2 mg PO HS BPH #90 tabs 02/06/23 ketoconazole 2 % topical cream 1 applic topical DAILY #60 grams 10/02/23 Allergies Allergy/AdvReac Type Severity Reaction Status Date / Time amlodipine Allergy polyuria Verified 01/01/24 10:11 bisoprolol Allergy bradycardia Verified 01/01/24 10:11 diltiazem [From Diltia XT] Allergy Edema Verified 01/01/24 10:11 Iodinated Contrast Media Allergy Hives Verified 01/01/24 12:39 labetalol Allergy trouble Verified 01/01/24 10:11 breathing lisinopril Allergy leg pain Verified 01/01/24 10:11 losartan Allergy leg pain Verified 01/01/24 10:11 metoprolol Allergy bradycardia Verified 01/01/24 10:11 General Stated Complaint: Abd Prob NEFTALI: 3 Review of Systems Narrative: see HPI Exam Const General: cooperative, healthy appearing and no acute distress Nutritional Appearance: average body habitus Cardio Rate: regular rate Rhythm: regular rhythm GI Inspection: normal to inspection Palpation: soft, not rigid and nontender Auscultation: normal bowel sounds Male General Exam: Yes tenderness (L femoral area at site of hernia) Penis: normal penis Testes: normal and testicular lie normal Course Vital Signs Vital signs: Vital Signs Temperature 36.5 C 01/01/24 10:14 Pulse 65 01/01/24 10:14 Respiratory Rate 16 01/01/24 10:14 Blood Pressure 237/111 H 01/01/24 10:14 Pulse Oximetry 95 01/01/24 10:14 Temperature 36.5 C 01/01/24 10:14 Temperature Source Temporal Artery Scan 01/01/24 10:14 Pulse 65 01/01/24 10:14 Respiratory Rate 16 01/01/24 10:14 Respiratory Effort Normal, Non-Labored 01/01/24 10:17 Blood Pressure 237/111 H 01/01/24 10:14 Blood Pressure Position Sitting 01/01/24 10:14 Pulse Oximetry 95 01/01/24 10:14 Oxygen Delivery Method Room Air 01/01/24 10:14 Oxygen Flow Rate 0 01/01/24 10:14 Pain Level 5 01/01/24 10:14 Medical Decision Making Skyler is an 83-year-old male with history of lung cancer and HTN who presents to the emergency dept for evaluation of LLQ pain in femoral area. He reports he has a known hernia, has a surgery for repair scheduled on January 08. He was told by Dr Carmona to call if he developed pain (he called this morning, was advised to come in for eval). He reports he started having abdominal discomfort around midnight in the area of the hernia; this has persisted at 5/10 since onset; has responded to PO tylenol. He denies associated fever/chills, nausea/vomiting, change in bowel function (has soft brown stool today, no black/tarry stools), change in testicles or penis. Slight difficulty with urination- no pain per pt. He did have abdominal surgery previously- esophageal surgery and R hernia repair. Physical examination. Abdomen is soft, nondistended, nontender to palpation with normoactive BS. Mild tenderness to palpation of left inguinal area, no obvious palpable hernia or ecchymosis/skin changes. Normal genitals. Easy work of breathing, lung sounds clear bilaterally. Normal heart sounds. D/dx includes but is not limited to: incarcerated hernia, diverticulitis, bladder outlet obstruction I independently interpreted the following tests: UA notable for trace blood. H&H slightly low at 11.9 and 37.6, no previous available for comparison. CMP unremarkable. While in the emergency department Skyler was noted to be hypertensive, he has been noted to have elevated blood pressures at office visits, with systolic in the high 100s. He was given Toradol for pain, with full resolution of symptoms. CT scan remarkable for 7 mm stone at L UVJ; large left-sided inguinal hernia with no signs of obstruction. Right lower lobe lung nodules noted, patient is aware of this finding (awaiting PET scan). Reviewed findings with radiologist. Discussed case with Dr. Heredia, urology. Although patient has a history of passing ureteral stones into the bladder without difficulty, it is likely that this will get stuck in his bladder. Dr. Heredia recommends pain control at home and looking out for signs of sepsis. Follow-up with urology next week for evaluation and management, as surgical intervention may be indicated. Reviewed discharge instructions with patient, including symptomatic mgmt and red flags indicating need for return to emergency care. He is agreeable with plan of care. Imaging Data Radiologic Study: Radiologist's impression: FINDINGS: Lung Bases: 12 millimeter nodule noted at the medial right lung base. Adjacent 6 millimeter nodule. This has increased in size when compared with prior exams. Gastric pull-through again noted. Liver: Normal density. No suspicious mass. Gallbladder and biliary tract: No radiodense calculus or dilation. Pancreas: Normal density, no abnormal calcifications or inflammatory process. Spleen: Normal. Kidneys: moderate left hydronephrosis with some perinephric stranding. The ureter is dilated down to the ureterovesical junction where there is a 7 millimeter obstructing stone. A few other tiny nonobstructing stones are noted in both kidneys. No suspicious masses seen. Adrenal glands: No masses seen. Lymph nodes: Within normal limits. Vasculature: Abdominal aorta non-dilated. Soft tissues: Large left inguinal hernia containing fat and portion of sigmoid colon. No bowel was seen within the hernia on the prior exam. Prior right inguinal hernia repair. Bladder: Bladder wall thickening and trabeculation. Small diverticula again noted. Calculus noted at right side of the bladder, unchanged. 7 millimeter calculus at left ureterovesical junction Bowel: No obstruction or bowel wall thickening. Normal quantity of stool. Sigmoid diverticulosis. Appendix normal. Peritoneal cavity: No ascites, collection or mesenteric inflammatory response. Reproductive organs: Markedly enlarged prostate. Bones: Right hip prosthesis. IMPRESSION: Moderate left hydronephrosis secondary to a 7 millimeter calculus at the ureterovesical junction. Markedly enlarged prostate. Bladder wall thickening and diverticula. Right-s ided bladder calculus. Enlarging pulmonary nodules at the medial right lung base, suspicious for metastases. Large left inguinal hernia containing fat and small portion of sigmoid colon. 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) Bilateral edema of lower extremity (Acute) Nail dystrophy (Acute) BPH loc w urin obs/LUTS (Acute) High grade prostatic intraepithelial neoplasia (Acute) Hypothyroidism (Chronic) Elevated PSA (Acute) Hypertension (Chronic) Medical History Bladder stone Lung cancer Radiation therapy 08/2022-current status: no treatment as of this pre op 12/18/22 Esophageal cancer Radiation and Chemo and 2/3 of esphagous removed in [place] (03/22/20)-In remission Normal colonoscopy Hemorrhoids Obesity Incomplete emptying of bladder Nocturia BPH (benign prostatic hyperplasia) Arthritis Enlarged prostate Asthma Glaucoma Surgical History History of esophageal surgery (~03/2020) History of total right hip replacement H/O inguinal hernia repair H/O umbilical hernia repair History of total bilateral knee replacement Social History Smoking/Tobacco Use Status: Former Tobacco Use Quit Date: 11/03/84 Pack-years: 30 Smoking risk assessment performed?: Yes Alcohol Intake: never Drug use: Never Substance use type: does not use Housing: house Current gender identity: male Do you feel safe at home: Yes Do you feel safe in your relationship?: Yes
[2024-01-01 10:48] VITALS: BP 213/101
[2024-01-01 10:48] LABS: Bilirubin Negative (Negative); Blood Trace-lysed (Negative); Clarity Clear (Clear); Glucose Negative (Negative); Ketones Negative (Negative); Leukocyte Esterase Negative (Negative); Nitrite Negative (Negative); Urobilinogen 0.2 mg/dL (Up to 0.2); pH 5.5 (5-8)
[2024-01-01 11:01] LABS: Bacteria Negative HPF (Negative); C & S Indicated? No; Casts Negative LPF (Negative); Crystals Negative HPF (Negative); Epithelial Cells Rare HPF (Negative); Mucus Negative (Negative); RBC 0-2 HPF (0-2); WBC 0-2 HPF (0-5)
[2024-01-01 11:20] VITALS: BP 165/127; PULSE 58; O2SAT 97
[2024-01-01] MEDS: Normal Saline 1,000 ML 125 ML IV (11:24)
[2024-01-01 11:41] LABS: Abs Immature Grans 0.01 10^3/uL (0.0-0.06); Absolute Basophil Count 0.04 10^3/uL (0.0-0.2); Absolute Eosinophil Count 0.08 10^3/uL (0.0-0.7); Absolute Lymphocyte Count 0.62 10^3/uL (1.2-3.4); Absolute Monocyte Count 0.26 10^3/uL (0.1-0.8); Absolute Neutrophil Count 3.76 10^3/uL (1.2-6.7); Basophils % 0.8; Eosinophils % 1.7; HCT 37.6 % (40.0-50.0); HGB 11.9 g/dL (13.5-17.5); Immature Grans % 0.2; MCH 25.1 pg (27.0-33.0); MCHC 31.6 % (32.0-36.0); MCV 79 fL (80-95); MPV 9.2 fL (8.0-11.0); Monocytes % 5.5; Neutrophils % 78.8; Platelet Count 163 10^3/uL (130-400); RBC 4.74 10^6/uL (4.36-5.78); RDW 15.8 % (11.8-14.1); RDW-SD 45.1 fL; WBC 4.77 10^3/uL (4.4-10.8)
[2024-01-01 12:01] LABS: ALT 14 U/L (16-63); AST 19 U/L (15-37); Albumin 3.6 g/dL (3.4-5.0); Alkaline Phosphatase 102 U/L (46-116); Anion Gap 8.7 mmol/L (3-11); BUN 14 mg/dL (7-18); Bilirubin, Total 0.8 mg/dL (0.2-1.0); CO2 27.3 mmol/L (21.0-32.0); CREATININE 1.3 mg/dL (0.70-1.30); Chloride 106 mmol/L (98-107); Estimated GFR 54.85 (mL/min/1.73m2); Glucose 101 mg/dL (74-106); Potassium 3.8 mmol/L (3.5-5.1); Sodium 142 mmol/L (136-145)
[2024-01-01] MEDS: Ketorolac 15 MG/ML VIAL IVP (12:27)
--- NOTE | 2024-01-01 12:52 | DI.CT_ITS ---
Exam(s) CT ABDOMEN PELVIS WO EXAM: CT ABDOMEN PELVIS WO CLINICAL HISTORY: LLQabd pain into groin. TECHNIQUE: Imaging Protocol: Axial computed tomography images with coronal and sagittal reformatted images were created and reviewed. Oral: yes / no COMPARISON: CT,DOC CT ABD PELVIS WO IV OR ORAL CONTRAST from 12/14/[address] CHEST WO CONTRAST from 05/29/[address] ABDOMEN PELVIS WO CONTRAST from 05/29/[address] LUMBAR SPINE RECONS from 09/12/[address] CHEST/ABD/PEL WO from 09/12/2023 FINDINGS: Lung Bases: 12 millimeter nodule noted at the medial right lung base. Adjacent 6 millimeter nodule. This has increased in size when compared with prior exams. Gastric pull-through again noted. Liver: Normal density. No suspicious mass. Gallbladder and biliary tract: No radiodense calculus or dilation. Pancreas: Normal density, no abnormal calcifications or inflammatory process. Spleen: Normal. Kidneys: moderate left hydronephrosis with some perinephric stranding. The ureter is dilated down t o the ureterovesical junction where there is a 7 millimeter obstructing stone. A few other tiny nono bstructing stones are noted in both kidneys. No suspicious masses seen. Adrenal glands: No masses seen. Lymph nodes: Within normal limits. Vasculature: Abdominal aorta non-dilated. Soft tissues: Large left inguinal hernia containing fat and portion of sigmoid colon. No bowel was s een within the hernia on the prior exam. Prior right inguinal hernia repair. Bladder: Bladder wall thickening and trabeculation. Small diverticula again noted. Calculus noted a t right side of the bladder, unchanged. 7 millimeter calculus at left ureterovesical junction Bowel: No obstruction or bowel wall thickening. Normal quantity of stool. Sigmoid diverticulosis. Appendix normal. Peritoneal cavity: No ascites, collection or mesenteric inflammatory response. Reproductive organs: Markedly enlarged prostate. Bones: Right hip prosthesis. IMPRESSION: Moderate left hydronephrosis secondary to a 7 millimeter calculus at the ureterovesical junction. Markedly enlarged prostate. Bladder wall thickening and diverticula. Right-sided bladder calculus. Enlarging pulmonary nodules at the medial right lung base, suspicious for metastases. Large left inguinal hernia containing fat and small portion of sigmoid colon. Findings called to Selina Narayanan, emergency department provider. RADIATION DOSE DELIVERED: 979.21mGy.cm Total DLP DATA REPOSITORY: All CT scans at this facility are submitted to the National Radiology Data Registry (NRDR) Dose Index Registry (DIR) with the [employer] (ACR). RADIATION OPTIMIZATION: All CT scans at this facility use at least one of these dose optimization te chniques: automated exposure control; mA and/or kV adjustment per patient size (includes targeted exa ms where dose is matched to clinical indication); or iterative reconstruction.
[2024-01-01 13:35] VITALS: BP 157/83; PULSE 68; RESP 18; TEMP 36.6; O2SAT 97
--- NOTE | 2024-01-01 16:10 | NUR.NOTE ---
Referral faxed to Dr Heredia for follow up of kidney stones early next week.
== END 2024-01-01 14:23 | disposition home or self-care (01) ==
PROVIDERS: Emergency Provider Nurse Practitioner Family; PCP Family Medicine
DX: R10.32 Left lower quadrant pain (principal); N13.2 Hydronephrosis with renal and ureteral calculous obstruction; N40.0 Benign prostatic hyperplasia without lower urinary tract symptoms; I10 Essential (primary) hypertension; Z85.01 Personal history of malignant neoplasm of esophagus; Z85.118 Personal history of other malignant neoplasm of bronchus and lung; Z92.3 Personal history of irradiation; Z92.21 Personal history of antineoplastic chemotherapy; Z87.891 Personal history of nicotine dependence
CPT/HCPCS: 80053; 99285; 74176; 81003; 81015; 85025; 99284; J1885

== ENCOUNTER → 2024-01-08 13:02 | Outpatient (BNVA) | payer MEDICARE, SELFPAY | PROVIDERS: PCP Family Medicine; Referring Provider Family Medicine; Visit Provider Podiatrist ==

== ENCOUNTER 2024-01-09 07:49 | Day surgery (SDC) | payer MEDICARE, SELFPAY ==
--- NOTE | 2024-01-08 18:40 | W.PREOPHP ---
Assessment and Plan Assessment and plan (1) Left inguinal hernia: Status: Acute Assessment and plan: We reviewed the plan for an inguinal hernia repair today and what to expect in terms of immediate and longer term recovery. I think our has a good understanding of the nature of the operation, as well as the recovery. We reviewed the risks and benefits, and he provided informed consent today. History of Present Illness History of Present Illness Chief Complaint: Inguinal hernia Narrative: Skyler is 83 years old. He has a left inguinal hernia that was most recently brought to his attention in October. At that time, he tells me he had been experiencing a little bit of constipation. He took a suppository, which has been his usual routine for many years. He developed a little bit of abdominal discomfort associated with that, and what he describes as swelling in the left groin. He scheduled an appointment with Dr. Heredai, who is known from previous care for his enlarged prostate as well as kidney and bladder stones. At that time, the hernia was brought to his attention. It was reducible, and not particularly tender. His symptoms had resolved by that point, and he was suggested to follow-up for consideration of elective hernia repair. Since his last office visit, has been struggling with a kidney stone, but otherwise has been in his usual state health. 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) Bilateral edema of lower extremity (Acute) Nail dystrophy (Acute) BPH loc w urin obs/LUTS (Acute) High grade prostatic intraepithelial neoplasia (Acute) Hypothyroidism (Chronic) Elevated PSA (Acute) Hypertension (Chronic) Medical History Bladder stone Lung cancer Radiation therapy 08/2022-current status: no treatment as of this pre op 12/18/22 Esophageal cancer Radiation and Chemo and 2/3 of esphagous removed in [place] (03/22/20)-In remission Normal colonoscopy Hemorrhoids Obesity Incomplete emptying of bladder Nocturia BPH (benign prostatic hyperplasia) Arthritis Enlarged prostate Asthma Glaucoma Surgical History History of esophageal surgery (~03/2020) History of total right hip replacement H/O inguinal hernia repair H/O umbilical hernia repair History of total bilateral knee replacement Social History Smoking/Tobacco Use Status: Former Tobacco Use Quit Date: 11/03/84 Pack-years: 30 Smoking risk assessment performed?: Yes Alcohol Intake: never Drug use: Never Substance use type: does not use Housing: house Current gender identity: male Do you feel safe at home: Yes Do you feel safe in your relationship?: Yes Meds Allergies and Home Medications Allergies Allergy/AdvReac Type Severity Reaction Status Date / Time amlodipine Allergy polyuria Verified 01/09/24 08:33 bisoprolol Allergy bradycardia Verified 01/09/24 08:33 diltiazem [From Diltia XT] Allergy Edema Verified 01/09/24 08:33 Iodinated Contrast Media Allergy Hives Verified 01/09/24 08:33 labetalol Allergy trouble Verified 01/09/24 08:33 breathing lisinopril Allergy leg pain Verified 01/09/24 08:33 losartan Allergy leg pain Verified 01/09/24 08:33 metoprolol Allergy bradycardia Verified 01/09/24 08:33 Home Medications Medication Instructions Recorded Confirmed Type levothyroxine 88 mcg tablet 88 mcg PO DAILY 12/18/22 01/09/24 History doxazosin 2 mg tablet 2 mg PO HS BPH #90 tabs 02/06/23 01/09/24 Rx ondansetron HCl 4 mg tablet 4 mg PO Q8H PRN 05/15/23 01/09/24 History ketoconazole 2 % topical cream 1 applic topical DAILY #60 grams 10/02/23 01/09/24 Rx tramadol 50 mg tablet 50 mg PO Q6H PRN pain #20 tabs 01/06/24 01/09/24 Rx Exam Const General: cooperative, healthy appearing and not in acute distress Neck Neck: normal visual inspection, no lymphadenopathy and supple Thyroid: thyroid normal Resp Effort & Inspection: normal respiratory effort Auscultation: clear to auscultation bilaterally Cardio Jugular venous pressure: no JVD Rate: regular rate Rhythm: regular rhythm Heart Sounds: S1 normal and S2 normal GI Inspection: normal to inspection Palpation: soft, no guarding, hernia (Left inguinal) and nontender Percussion: normal to percussion Auscultation: normal bowel sounds Neuro General: patient alert, patient awake and patient oriented x3 Psych Appearance: grossly normal
--- NOTE | 2024-01-08 18:43 | W.PM.DSUDISC ---
Date of service: 01/09/24 Time of Service: 11:42 Discharge Plan Disposition Patient Disposition: Home Condition: Good Discharge Details Reason For Visit: inguinal hernia repair Attending Provider: Sumanth Carmona Primary Care Provider: Dayne Urban Home Meds and New Rx's Prescriptions: New tramadol 100 mg tablet 100 mg PO TID PRNQty: 12 0RF Rx Instructions: Take half, or 1 full tablet by mouth every 8 hours if needed for severe pain. This is twice of your normal dose. Continued doxazosin 2 mg tablet 2 mg PO HS Qty: 90 3RF Rx Instructions: may take 2 at bedtime ondansetron HCl 4 mg tablet 4 mg PO Q8H PRN ketoconazole 2 % cream 1 applic topical DAILY Qty: 60 0RF Rx Instructions: apply toenails daily levothyroxine 88 mcg tablet 88 mcg PO DAILY Patient Comments: TAKE ONE TABLET BY MOUTH EVERY DAY Discontinued tramadol 50 mg tablet 50 mg PO Q6H PRN (Reason: pain) Qty: 20 0RF Rx Instructions: may take along with Tylenol Discharge Instructions Instructions: Inguinal Hernia Repair (GEN) Additional Instructions: Skyler, we were able to repair your hernia just like we talked about. As I am sure you already had a sense, it was quite large. However, everything went back into its normal place just as we planned. I did use some permanent mesh material to help minimize the chances of this coming back. Expect to have some pain over the next few days as the nerve block starts to wear off. You may also notice that there is a fair amount of bruising that may even extend down into the scrotum. That is quite typical, so do not be alarmed if that happens. I would like to know if the skin starts turning bright red or you have any significant discharge from the incision. Please be careful with your lifting in the next week or 2. Again, try to keep it less than 5 pounds. I have provided a prescription for tramadol if Tylenol and ibuprofen are not enough to control the pain. If you have any questions in the meantime, please do not hesitate to call, otherwise I look forward to seeing you in the office on the 1. Resume all of your regular medications. 2. Use heating pads and ice packs to help with pain. 3. Use over the counter tylenol and ibuprofen every 6 hours around the clock for 48 hours, then use it as needed. Use tramadol if needed for more severe pain. 4. Leave bandage in place for 24 hours, then remove. 5. Shower with warm soapy water. Pat dry. Use a bandaid if needed to protect your clothing. 6. No soaking or tub baths until I see you in the office. 7. No heavy lifting until I see you in the office. 8. Call the office (or go directly to the emergency room after hours) if you notice any of the following: Develop chills (warm to touch), or if you have a thermometer and your temperature is above 101 Difficulty breathing or difficultly swallowing Persistent vomiting Any bleeding ? exceeding one tablespoon 9. Call your physician if the site where your intravenous was started becomes red, swollen, painful, and warm to touch. Activity:: no heavy lifting Remove Dressings/Wound Care:: 24 hours Shower/Bathe:: 24 hours Diet:: As Tolerated Discharge Orders Discharge Orders: Discharge Order (Routine); Ordered 01/08/24 Ordered By: Sumanth Carmona DS: Diagnosis Discharge Diagnosis (1) Left inguinal hernia: Status: Acute Asessment and Plan: Outpatient postoperative follow-up on January 20
--- NOTE | 2024-01-08 18:47 | W.PM.OP ---
Date of service: 01/09/24 Time of Service: 11:47 Operative Note Operative Note DATE OF PROCEDURE: 01/09/24 PRE-OP DIAGNOSIS: Inguinal hernia POST-OP DIAGNOSIS: other (Left-sided direct inguinal hernia) PROCEDURE: Open inguinal hernia repair with mesh SURGEON: Sumanth Carmona [employer] SUPERVISOR: Mariam Calles ANESTHESIA TYPE: Local By Surgeon, General LMA/ETT and Other (TAP inguinal nerve block) Refer to Anesthesia Record ESTIMATED BLOOD LOSS: 25 PATHOLOGY: none sent COMPLICATIONS: None Patient was transported to: PACU Patient's condition: stable Implants: Bard PerFix light large mesh plug and patch Indications: Skyler is an 83-year-old male with a enlarging and occasionally painful left-sided inguinal hernia Findings: Left-sided direct inguinal hernia Procedure Description: I began by confirming the correct site with the patient. Next, after induction of general anesthesia the left inguinal Nerve was blocked by real-time ultrasound guidance by their team. Surgical site was then prepped and draped in the usual fashion. I began by making an oblique incision over the left inguinal region. I dissected down through the skin to the deep fascia. Next, I incised the fascia along the length of the inguinal canal to the external ring. I then carefully identified the ilioinguinal nerve and sharply divided. Once this was complete, I bluntly dissected the shelving edge of the inguinal ligament down towards the pubic tubercle. Here, I encircled all cord structures with a Clarendon drain. Next, I began dissecting the specific cord structures. Great care was taken to spare the vas deferens and the blood supply to the testicle. Next, I isolated the hernia sac from the other inguinal structures. This was a direct inguinal hernia with near obliteration of the floor the inguinal canal/. I reduced it back to its normal anatomic position. I then used a large mesh plug to obliterate the defect at the internal ring. I fixed in place with interrupted Prolene stitches. Next, I buttressed the posterior floor of the inguinal canal with a large mesh patch. I started by fixing it to the pubic tubercle. Next, I used Prolene sutures to affix it to the shelving edge of the inguinal ligament and the conjoined tendon. Laterally I tacked it to the external oblique fascia and reconstructed an internal ring without any strain on the cord structures. Once this was complete, I irrigated the surgical field. It appeared hemostatic. I then closed the anterior portion of the fascia to reconstruct the front wall of the inguinal canal. I did this with interrupted Vicryl stitches. Once again, I irrigated the surgical field and inspected for hemostasis. Finally, I approximated the superficial fascia and the deep layers of the skin with absorbable suture. Skin was closed with running subcuticular stitches. Bandages were applied, the patient was awakened and transferred to the recovery unit.
[2024-01-09] VITALS (12 sets, daily range): BP systolic 167–217; BP diastolic 76–125; PULSE 57–89; RESP 13–19; TEMP 36.3–36.8; O2SAT 95–100; BMI 32.1
--- NOTE | 2024-01-09 07:54 | W.ANESPRE ---
General Info Date of Service Date Performed: 01/09/24 Height: 5 ft 11 in Weight: 104.326 kg Body Mass Index (BMI): 32.1 Surgical Procedure: Operation Date: 01/09/24 09:10 Proposed Procedure Side Surgeon p Inguinal hernia repair with mesh Left Sumanth Carmona MD Meds Allergies and Home Medications Allergies Allergy/AdvReac Type Severity Reaction Status Date / Time amlodipine Allergy polyuria Verified 01/09/24 08:33 bisoprolol Allergy bradycardia Verified 01/09/24 08:33 diltiazem [From Diltia XT] Allergy Edema Verified 01/09/24 08:33 Iodinated Contrast Media Allergy Hives Verified 01/09/24 08:33 labetalol Allergy trouble Verified 01/09/24 08:33 breathing lisinopril Allergy leg pain Verified 01/09/24 08:33 losartan Allergy leg pain Verified 01/09/24 08:33 metoprolol Allergy bradycardia Verified 01/09/24 08:33 Home Medication Medication Instructions Recorded levothyroxine 88 mcg tablet 88 mcg PO DAILY 12/18/22 doxazosin 2 mg tablet 2 mg PO HS BPH #90 tabs 02/06/23 ondansetron HCl 4 mg tablet 4 mg PO Q8H PRN 05/15/23 ketoconazole 2 % topical cream 1 applic topical DAILY #60 grams 10/02/23 tramadol 50 mg tablet 50 mg PO Q6H PRN pain #20 tabs 01/06/24 Current Visit Medications: Current Medications Generic Name Dose Route Start Last Admin Trade Name Freq PRN Reason Stop Dose Admin Acetaminophen 1,000 mg 01/09/24 06:00 Acetaminophen 500 Mg Tab PO 01/09/24 23:59 PREOP MARICARMEN Celecoxib 200 mg 01/09/24 06:00 Celecoxib 200 Mg Cap PO 01/09/24 23:59 PREOP MARICARMEN Gabapentin 600 mg 01/09/24 06:00 Gabapentin 300 Mg Cap PO 01/09/24 23:59 PREOP MARICARMEN Hydromorphone HCl 0.2 mg 01/08/24 18:49 Hydromorphone 2 Mg/Ml Syr IVP 02/07/24 18:48 Q1H PRN PRN Ringer's Solution 1,000 mls @ 80 mls/hr 01/09/24 06:00 IV 01/09/24 23:59 [facility]ION [facility] IV Miscellaneous Supplies 1 each 01/09/24 06:00 Iv Access IV 01/09/24 23:59 DIRECTED MARICARMEN Sodium Chloride 0 ml 01/09/24 06:00 Normal Saline Flush 10 Ml Syr IV 01/09/24 23:59 PRN PRN Sodium Chloride 0 ml 01/09/24 06:00 Normal Saline 10 Ml Vial IJ 01/09/24 23:59 DIRECTED PRN Sterile Water 0 ml 01/09/24 06:00 Water,Injection,Sterile 10 Ml Vial IJ 01/09/24 23:59 DIRECTED PRN Tramadol HCl 50 mg 01/08/24 18:49 Tramadol 50 Mg Tab PO 02/07/24 18:48 Q6H PRN PRN Pain PFSH Active Problems Active Problems: Problem Status Onset Code Kidney stone on left side N20.0 Left inguinal hernia K40.90 Tinea pedis B35.3 Onychomycosis B35.1 Hx of long-term (current) use of anticoagulants Z92.29 Venous insufficiency I87.2 Foot pain, left M79.672 Callus L84 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, T45.1X5A Bilateral edema of lower extremity R60.0 Nail dystrophy L60.3 BPH loc w urin obs/LUTS N40.1 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 Hypothyroidism E03.9 Elevated PSA R97.20 Hypertension I10 Medical History Medical History Bladder stone Lung cancer Radiation therapy 08/2022-current status: no treatment as of this pre op 12/18/22 Esophageal cancer Radiation and Chemo and 2/3 of esphagous removed in [place] (03/22/20)-In remission Normal colonoscopy Hemorrhoids Obesity Incomplete emptying of bladder Nocturia BPH (benign prostatic hyperplasia) Arthritis Enlarged prostate Asthma Glaucoma Surgical History Surgical History History of esophageal surgery (~03/2020) History of total right hip replacement H/O inguinal hernia repair H/O umbilical hernia repair History of total bilateral knee replacement Tobacco Smoking/Tobacco Use Status: Former Tobacco Use Alcohol Alcohol Intake: never Substance Use Substance use: Never Substance use type: does not use Vital Signs and Lab Results Lab Results Blood Type / Crossmatch: No Data to Display Complete Blood Count: White Blood Count 4.77 10^3/uL (4.4-10.8) 01/01/24 11:24 Red Blood Count 4.74 10^6/uL (4.36-5.78) 01/01/24 11:24 Hemoglobin 11.9 g/dL (13.5-17.5) L 01/01/24 11:24 Hematocrit 37.6 % (40.0-50.0) L 01/01/24 11:24 Platelet Count 163 10^3/uL (130-400) 01/01/24 11:24 Complete Metabolic Panel: Sodium 142 mmol/L (136-145) 01/01/24 11:24 Potassium 3.8 mmol/L (3.5-5.1) 01/01/24 11:24 Chloride 106 mmol/L (98-107) 01/01/24 11:24 Carbon Dioxide 27.3 mmol/L (21.0-32.0) 01/01/24 11:24 BUN 14 mg/dL (7-18) 01/01/24 11:24 Creatinine 1.3 mg/dL (0.70-1.30) 01/01/24 11:24 Est GFR (CKD-EPI 2020) 54.85 (mL/min/1.73m2) 01/01/24 11:24 Calcium 9.0 mg/dL (8.5-10.1) 01/01/24 11:24 Albumin 3.6 g/dL (3.4-5.0) 01/01/24 11:24 Glucose 101 mg/dL (74-106) 01/01/24 11:24 Liver Function Panel: Alanine Aminotransferase (ALT/SGPT) 14 U/L (16-63) L 01/01/24 11:24 Aspartate Amino Transf (AST/SGOT) 19 U/L (15-37) 01/01/24 11:24 Coagulation Panel: No Data to Display Cardiac Panel: No Data to Display Arterial Blood Gas: No Data to Display Venous Blood Gas: No Data to Display Pancreas Panel: No Data to Display Thyroid Panel: No Data to Display Infectious Disease: No Data to Display Blood Cultures: No Data to Display Toxicology Panel: No Data to Display Imaging and Studies Imaging and Studies Study information below may be from another EMR and interpreted by another provider. Please see original notes in EMR for more complete details. Stress Test Summary: 06/22/2020: [facility]: Normal, EF 56%. Anesthesia Assessment and Plan Anesthesia History Personal History: No History of Anesthesia Complications Family History: No Family History of Anesthesia Complications Exercise Tolerance Exercise Tolerance: Metabolic Equivalents>4 Pertinent Negatives Pertinent Negatives: No Major Cardiovascular Symptoms or Complaints and No History of CVA/TIA Cardiac & Pulmonary Exam Cardiac Exam: Normal S1/S2 Heart Sounds Pulmonary Exam: Clear Bilateral Breath Sounds Implantable Cardiac Device Does patient have a Pacemaker or an ICD?: No Airway Exam Known Difficult Airway: No Mallampati Class: 3 Mouth Opening: Normal (> 3cm) Thyromental Distance: Greater than 3 cm Neck Range of Motion: Full ROM Neck Circumference: Normal Teeth Condition: Generalized Poor Dentition, Removable Dentures/Plates Upper and Removable Dentures/Plates Lower ASA Classification ASA Score: ASA 3 Emergency Case?: No NPO Status NPO Status: NPO Clears >2 hours, Solids >8 hours Anesthesia Plan Resuscitation Status: Full Code Anesthesia Technique: General Anesthesia Airway Planned: Endotracheal Tube (Reflux when flat as a result of previous surgeries, will require airway protection. Will be an RSI.) Pain Management: Surgeon and patient request nerve block Monitors Used: Standard Monitors Preoperative Comments:: 83 yo male to OR for inguinal hernia repair PMH: Asthma, polyneuropathy, Chemo and radiation for lung CA and esophageal CA, BPH, HTN, Glaucoma, hypothyroidism (Levothyroxine 88 mcg). discussed spinal vs. general with pt with risks and benefits; pt does not want to be awake so has opted for GA with ETT
[2024-01-09] MEDS: Lactated Ringers 1,000 ML 80 ML IV (09:17)
[2024-01-09] MEDS: Celecoxib 200 MG CAP PO (09:42)
[2024-01-09] MEDS: Acetaminophen 500 MG TAB 1000 MG PO (09:42)
[2024-01-09] MEDS: Gabapentin 300 MG CAP 600 MG PO (09:42)
[2024-01-09] MEDS: ceFAZolin 2 GM/50 ML BAG 300 GM (10:40)
--- NOTE | 2024-01-09 10:53 | W.ANESNERVE ---
Nerve Block Single Injection Procedure Date and Time Date Performed: 01/09/24 Procedure Start: 10:20 Location Where Procedure Performed Procedure Location: Operating Room Procedure Stop: 10:37 Reason Performed: Postoperative Analgesia Requesting Provider: Sumanth Carmona Timeout Performed Timeout Performed: Yes Monitoring Used ECG, Blood Pressure, SpO2, ETCO2 and See EMR for corresponding vital signs Sterility Sterility: Hand Hygiene, Surgical Cap, Surgical Mask, Sterile Gloves and Chlorhexidine Sedation Given During Procedure Sedation Given (Indicate Dose Given): No Sedation given Patient Mental Status Patient Mental Status: Performed under general anesthesia Nerve Block 1st Nerve Block: Laterality: Left Block Type: TAP Unilateral Ultrasound Image Saved?: Yes Needle / Catheter Used: 100mm SonoPlex II Local Anesthetic Bolus (Indicate Dose Given): Bupivacaine 0.25% Dose:: 15mL Additives (Indicate Dose Given): None Ultrasound: Sterile probe cover and gel used Nerve Stimulator: Not Used Paresthesia: None Procedure Tolerated: No Complications and Patient tolerated well Procedure Outcome: Successful Performed By: Yana Chirinos Supervised By: Jose Kwan
[2024-01-09] MEDS: fentaNYL 100 MCG/2 ML VIAL IVP (12:43)
[2024-01-09] MEDS: hydrALAZINE 20 MG/ML VIAL 10 MG IVP ×2 (13:01→13:25)
--- NOTE | 2024-01-09 14:30 | W.ANESPOSTOP ---
Postoperative Evaluation Date, Time and Location Date Performed: 01/09/24 Time Performed: 14:30 Patient Location: Day Surgery Unit Vital Signs Most Recent Imported Vital Signs: Most Recent Vital Signs Temp Pulse Resp BP Pulse Ox 36.3 C L 76 16 167/76 H 97 01/09/24 14:06 01/09/24 14:06 01/09/24 14:06 01/09/24 14:06 01/09/24 14:06 Pain Score Most Recent Pain Score: Most Recent Pain Score Pain Level 0 01/09/24 14:06 Assessment Mental Status: Awake (Alert & Oriented to Patient Baseline) Airway and Respiratory Function: Patent airway with normal (patient baseline) respiratory exam Cardiovascular Function: Hemodynamically Stable Hydration Status: Adequately Hydrated Nausea & Vomiting: No Nausea or Vomiting Pain: Pt. Denies Any Pain Peripheral Nerve Block: Patient did not receive a nerve block Teaching Patient Teaching: Advised to seek followup for the following concerns (See explanation) Concerns: Poorly Controlled Hypertension (Called Dr. Mireles office ([phone]), at patients request, and asked for them to schedule an appt this coming week for the patient.)
== END 2024-01-09 15:13 | disposition home or self-care (01) ==
LOC: SUR 07:50
PROVIDERS: PCP Family Medicine; Visit Provider Surgery
PROC: (CPT 49505; principal; 2024-01-09 09:00)
DX: K40.90 Unilateral inguinal hernia, without obstruction or gangrene, not specified as recurrent (principal); I10 Essential (primary) hypertension; E03.9 Hypothyroidism, unspecified
CPT/HCPCS: 49505; 76942; C1781; J0360; J0665; J0690; J1100; J2001; J2371; J2405; J2704; J3010

== ENCOUNTER → 2024-01-21 07:55 | Outpatient (BNVA) | payer MEDICARE, SELFPAY | PROVIDERS: PCP Family Medicine; Referring Provider Family Medicine; Visit Provider Surgery | DX: Z48.817 Encounter for surgical aftercare following surgery on the skin and subcutaneous tissue (principal); K40.90 Unilateral inguinal hernia, without obstruction or gangrene, not specified as recurrent ==

== ENCOUNTER → 2024-01-28 08:00 | Outpatient (BNVA) | payer MEDICARE, SELFPAY | PROVIDERS: PCP Family Medicine; Referring Provider Family Medicine; Visit Provider Nurse Practitioner Gerontology ==

== ENCOUNTER 2024-01-28 16:14 | Outpatient (CLI) | payer MEDICARE, SELFPAY ==
[2024-01-28 17:09] LABS: PSA, Diagnostic 19.1 ng/mL (<=6.5)
== END 2024-01-28 16:15 | disposition home or self-care (01) ==
LOC: LBO 16:16
PROVIDERS: PCP Family Medicine; Visit Provider Nurse Practitioner Gerontology
DX: R97.20 Elevated prostate specific antigen [PSA] (principal); N40.1 Benign prostatic hyperplasia with lower urinary tract symptoms; N42.31 Prostatic intraepithelial neoplasia; N20.0 Calculus of kidney
CPT/HCPCS: 36415; 51798; 99214; 84153

== ENCOUNTER → 2024-02-11 08:36 | Outpatient (BNVA) | payer MEDICARE, SELFPAY | PROVIDERS: PCP Family Medicine; Referring Provider Family Medicine; Visit Provider Podiatrist | DX: L60.3 Nail dystrophy (principal); B35.1 Tinea unguium; B35.3 Tinea pedis; G62.0 Drug-induced polyneuropathy; T45.1X5A Adverse effect of antineoplastic and immunosuppressive drugs, initial encounter; G62.82 Radiation-induced polyneuropathy; R60.0 Localized edema | CPT/HCPCS: 11721 ==

== ENCOUNTER → 2024-02-11 10:05 | Outpatient (BNVA) | payer MEDICARE, SELFPAY | PROVIDERS: PCP Family Medicine; Referring Provider Family Medicine; Visit Provider Nurse Practitioner Gerontology | DX: N40.1 Benign prostatic hyperplasia with lower urinary tract symptoms (principal); R97.20 Elevated prostate specific antigen [PSA]; N42.31 Prostatic intraepithelial neoplasia; N20.0 Calculus of kidney | CPT/HCPCS: 11721; 99214 ==

== ENCOUNTER → 2024-04-21 12:54 | Outpatient (BNVA) | payer MEDICARE, SELFPAY | PROVIDERS: PCP Family Medicine; Referring Provider Family Medicine; Visit Provider Podiatrist | DX: G62.82 Radiation-induced polyneuropathy (principal); T45.1X5A Adverse effect of antineoplastic and immunosuppressive drugs, initial encounter; R60.0 Localized edema; I87.2 Venous insufficiency (chronic) (peripheral); L60.3 Nail dystrophy; B35.1 Tinea unguium; B35.3 Tinea pedis; M79.674 Pain in right toe(s); R09.89 Other specified symptoms and signs involving the circulatory and respiratory systems | CPT/HCPCS: 11721 ==

== ENCOUNTER 2024-05-18 03:25 | Outpatient (CLI) | payer MEDICARE, SELFPAY ==
[2024-05-18 19:37] LABS: PSA, Diagnostic 14.3 ng/mL (<=6.5)
== END 2024-05-18 03:26 | disposition home or self-care (01) ==
LOC: LBO 03:25
PROVIDERS: PCP Family Medicine; Visit Provider Nurse Practitioner Gerontology
DX: N40.1 Benign prostatic hyperplasia with lower urinary tract symptoms (principal); N42.31 Prostatic intraepithelial neoplasia; R97.20 Elevated prostate specific antigen [PSA]
CPT/HCPCS: 36415; 84153

== ENCOUNTER → 2024-05-24 13:48 | Outpatient (BNVA) | payer MEDICARE, SELFPAY | PROVIDERS: PCP Family Medicine; Visit Provider Nurse Practitioner Gerontology | DX: N20.0 Calculus of kidney (principal); N40.1 Benign prostatic hyperplasia with lower urinary tract symptoms; N42.31 Prostatic intraepithelial neoplasia; R97.20 Elevated prostate specific antigen [PSA] | CPT/HCPCS: 99214 ==

== ENCOUNTER → 2024-05-27 01:01 | Outpatient (CLI) | payer MEDICARE, SELFPAY ==
--- NOTE | 2024-05-27 14:12 | DI.RAD_ITS ---
Exam(s) XR ABDOMEN FLAT PLATE EXAM: XR ABDOMEN FLAT PLATE CLINICAL HISTORY: monitoring calculi,z87.442. TECHNIQUE: 2D digital imaging was performed. COMPARISON: CT CT ABDOMEN PELVIS WO from 01/01/2024 FINDINGS: Single AP supine view the abdomen: Right hip prosthesis noted. Also surgical clips in the epigastric region. The bowel gas pattern jennifer ears nonspecific in the supine position. Cannot assess for bowel obstruction or free air without an upright view. No calcifications seen over the kidneys, realizing that the right kidney is obscured b y fecal material in the right-side of the colon. There are 2 calcifications in the right-side of the pelvis which are projected over the right-side of the mid-lower sacrum. Please note that CT scan of 01/01/2024 revealed bilateral nephrolithiasis and an obstructing calculus in the lower left ureter a t that time. That CT scan also revealed a grossly enlarged prostate gland. No significant osseous lesions evident. Evidence of previous right inguinal hernia repair. IMPRESSION: As above. If clinically indicated follow-up CT scan can be performed DATA REPOSITORY: RADIATION DOSE DELIVERED:
== END ==
PROVIDERS: PCP Family Medicine; Visit Provider Nurse Practitioner Gerontology
DX: Z87.442 Personal history of urinary calculi (principal)
CPT/HCPCS: 74018

== ENCOUNTER → 2024-07-01 07:51 | Outpatient (BNVA) | payer MEDICARE, SELFPAY | PROVIDERS: PCP Family Medicine; Referring Provider Family Medicine; Visit Provider Nurse Practitioner Gerontology | DX: N40.1 Benign prostatic hyperplasia with lower urinary tract symptoms (principal); N20.0 Calculus of kidney; N42.31 Prostatic intraepithelial neoplasia; R97.20 Elevated prostate specific antigen [PSA] | CPT/HCPCS: 99214 ==

== ENCOUNTER → 2024-07-15 12:54 | Outpatient (BNVA) | payer MEDICARE, SELFPAY | PROVIDERS: PCP Family Medicine; Referring Provider Family Medicine; Visit Provider Podiatrist | DX: B35.3 Tinea pedis (principal); B35.1 Tinea unguium; I87.2 Venous insufficiency (chronic) (peripheral); R60.0 Localized edema; L60.3 Nail dystrophy; G62.0 Drug-induced polyneuropathy; T45.1X5A Adverse effect of antineoplastic and immunosuppressive drugs, initial encounter; I73.89 Other specified peripheral vascular diseases; M79.674 Pain in right toe(s); R09.89 Other specified symptoms and signs involving the circulatory and respiratory systems; L65.9 Nonscarring hair loss, unspecified; L60.2 Onychogryphosis; L60.8 Other nail disorders | CPT/HCPCS: 11721 ==

== ENCOUNTER → 2024-10-18 13:01 | Outpatient (BNVA) | payer MEDICARE, SELFPAY | PROVIDERS: PCP Family Medicine; Referring Provider Family Medicine; Visit Provider Podiatrist | DX: L60.3 Nail dystrophy (principal); B35.1 Tinea unguium; B35.3 Tinea pedis; I87.2 Venous insufficiency (chronic) (peripheral); G62.82 Radiation-induced polyneuropathy; R60.0 Localized edema; T45.1X5A Adverse effect of antineoplastic and immunosuppressive drugs, initial encounter; R09.89 Other specified symptoms and signs involving the circulatory and respiratory systems; L65.9 Nonscarring hair loss, unspecified; L85.8 Other specified epidermal thickening | CPT/HCPCS: 11721 ==

== ENCOUNTER 2024-11-15 03:30 | Outpatient (CLI) | payer MEDICARE, SELFPAY ==
[2024-11-15 18:45] LABS: PSA, Diagnostic 17.8 ng/mL (<=6.5)
== END 2024-11-15 03:31 | disposition home or self-care (01) ==
LOC: LBO 03:30
PROVIDERS: PCP Family Medicine; Visit Provider Nurse Practitioner Gerontology
DX: N40.1 Benign prostatic hyperplasia with lower urinary tract symptoms (principal); R97.20 Elevated prostate specific antigen [PSA]; N42.31 Prostatic intraepithelial neoplasia
CPT/HCPCS: 36415; 84153

== ENCOUNTER → 2024-11-22 08:53 | Outpatient (BNVA) | payer MEDICARE, SELFPAY | PROVIDERS: PCP Family Medicine; Referring Provider Family Medicine; Visit Provider Nurse Practitioner Gerontology | DX: N21.0 Calculus in bladder (principal); N40.1 Benign prostatic hyperplasia with lower urinary tract symptoms; N42.31 Prostatic intraepithelial neoplasia | CPT/HCPCS: 98012; 99213 ==

== ENCOUNTER → 2025-01-19 08:38 | Outpatient (BNVA) | payer MEDICARE, SELFPAY | PROVIDERS: PCP Family Medicine; Referring Provider Family Medicine; Visit Provider Podiatrist | DX: L60.3 Nail dystrophy (principal); B35.1 Tinea unguium; B35.3 Tinea pedis; I87.2 Venous insufficiency (chronic) (peripheral); G62.82 Radiation-induced polyneuropathy; R60.0 Localized edema; G62.0 Drug-induced polyneuropathy; T45.1X5A Adverse effect of antineoplastic and immunosuppressive drugs, initial encounter; I83.93 Asymptomatic varicose veins of bilateral lower extremities; L65.9 Nonscarring hair loss, unspecified; L60.2 Onychogryphosis; L60.8 Other nail disorders; L85.8 Other specified epidermal thickening | CPT/HCPCS: 11721 ==

== ENCOUNTER → 2025-04-27 10:42 | Outpatient (BNVA) | payer MEDICARE, SELFPAY | PROVIDERS: PCP Family Medicine; Referring Provider Family Medicine; Visit Provider Podiatrist | DX: L60.3 Nail dystrophy (principal); B35.3 Tinea pedis; B35.1 Tinea unguium; G62.82 Radiation-induced polyneuropathy; G62.0 Drug-induced polyneuropathy; T45.1X5A Adverse effect of antineoplastic and immunosuppressive drugs, initial encounter; I87.2 Venous insufficiency (chronic) (peripheral); R60.0 Localized edema; R09.89 Other specified symptoms and signs involving the circulatory and respiratory systems; I83.93 Asymptomatic varicose veins of bilateral lower extremities; L65.9 Nonscarring hair loss, unspecified; R23.8 Other skin changes; L60.2 Onychogryphosis; L60.8 Other nail disorders; L85.8 Other specified epidermal thickening | CPT/HCPCS: 11056; 11721 ==

== ENCOUNTER 2025-05-16 12:50 | Outpatient (CLI) | payer MEDICARE, SELFPAY ==
[2025-05-17 09:25] LABS: PSA, Diagnostic 18.3 ng/mL (<=6.5)
== END 2025-05-16 12:51 | disposition home or self-care (01) ==
LOC: LBO 12:51
PROVIDERS: PCP Family Medicine; Visit Provider Nurse Practitioner Gerontology
DX: N40.1 Benign prostatic hyperplasia with lower urinary tract symptoms (principal); N42.31 Prostatic intraepithelial neoplasia; R97.20 Elevated prostate specific antigen [PSA]
CPT/HCPCS: 36415; 84153

== ENCOUNTER → 2025-06-07 10:30 | Outpatient (BNVA) | payer MEDICARE, SELFPAY | PROVIDERS: PCP Family Medicine; Referring Provider Family Medicine; Visit Provider Podiatrist | DX: L60.3 Nail dystrophy (principal); B35.1 Tinea unguium; B35.3 Tinea pedis; I87.2 Venous insufficiency (chronic) (peripheral); G62.82 Radiation-induced polyneuropathy; R60.0 Localized edema; G62.0 Drug-induced polyneuropathy; T45.1X5A Adverse effect of antineoplastic and immunosuppressive drugs, initial encounter; R09.89 Other specified symptoms and signs involving the circulatory and respiratory systems; I83.93 Asymptomatic varicose veins of bilateral lower extremities; L65.9 Nonscarring hair loss, unspecified; R23.8 Other skin changes; L60.2 Onychogryphosis; L60.8 Other nail disorders; L85.8 Other specified epidermal thickening | CPT/HCPCS: 11056; 11721 ==